=== PATIENT | female | born 1930 | race Caucasian/White ===

== ENCOUNTER 2016-08-13 17:08 | Emergency (ER) | payer MEDICARE ==
--- NOTE | 2016-08-13 18:03 | RAD ---
INDICATION: Right ankle injury. TECHNIQUE: 3 views of the right ankle were obtained. FINDINGS: The bones are osteopenic. There is diffuse soft tissue swelling present. There is an oblique intra-articular fracture of the distal fibula. The distal fragment is displaced approximate 2 cortical diameters lateral and demonstrates lateral angulation relative the proximal fragment. In addition there is a transverse comminuted fracture of the medial malleolus extending to the articular margin. The distal fragment is slightly displaced lateral relative to the proximal fragment. There is widening of the ankle mortise. IMPRESSION: 1. OBLIQUE SLIGHTLY DISPLACED, ANGULATED INTRA-ARTICULAR FRACTURE OF THE DISTAL FIBULA. 2. TRANSVERSE SLIGHTLY COMMINUTED SLIGHTLY DISPLACED INTRA-ARTICULAR FRACTURE OF THE MEDIAL MALLEOLUS. 3. WIDENING OF THE ANKLE MORTISE.
--- NOTE | 2016-08-13 18:13 | ED ---
Lower Extremity - HPI Summary HPI Summary: 86 female presents with complaints of right ankle pain and swelling after falling on ice few hours prior to arrival. Patient is accompanied by 2 sons and was brought in via EMS. Patient states she was walking when she slipped and thinks she felt cracking in her ankle. States her pain right now is about a 4/ 10. She has not taken anything for the pain. Denies tingling. Admits to some numbness, ecchymosis and swelling surrounding the ankle. Limited ROM and unable to bear weight. She has osteoporosis. Did not hit her head and no LOC. Denies any other aches/pains or injuries at this time. - History of Current Complaint Chief Complaint: EDExtremityLower Stated Complaint: RT ANKLE INJURY Time Seen by Provider: 08/13/16 17:21 Hx Obtained From: Patient, Family/Confectionery Cooker - sons Mechanism Of Injury: Fall From A Standing Position, Twisted Onset of Pain: Immediate Onset/Duration: Still Present Severity Initially: Mild Severity Currently: Moderate Pain Intensity: 4 Pain Scale Used: 0-10 Numeric Timing: Constant Location: Is Discrete @ - right ankle Character Of Pain: Aching, Throbbing Associated Signs And Symptoms: Positive: Swelling, Bruising. Negative: Knee Pain Aggravating Factor(s): Movement, Weight Bearing Alleviating Factor(s): Rest, Elevation Able to Bear Weight: No - Allergies/Home Medications Allergies/Adverse Reactions: Allergies Allergy/AdvReac Type Severity Reaction Status Date / Time No Known Allergies Allergy Verified 12/11/14 08:18 PMH/Surg Hx/FS Hx/Imm Hx Endocrine/Hematology History: Denies: Hx Diabetes, Hx Thyroid Disease Cardiovascular History: Reports: Hx Rheumatic Fever - HX OF 1966 Denies: Hx Hypertension Respiratory History: Denies: Hx Asthma, Hx Chronic Obstructive Pulmonary Disease (COPD) GI History: Denies: Hx Ulcer History: Reports: Other Problems/Disorders - HX OF UTI'S IN THE PAST Musculoskeletal History: Reports: Hx Arthritis - FINGERS, Hx Osteoporosis Sensory History: Reports: Hx Cataracts - BILATERAL, Hx Contacts or Glasses Denies: Hx Hearing Aid Opthamlomology History: Reports: Hx Cataracts - BILATERAL, Hx Contacts or Glasses - Surgical History Surgery Procedure, Year, and Place: abdominal adhesion 91 left distal radius ORIF today Hx Anesthesia Reactions: Yes - OVERNIGHT OBSERVATION/WRIST SURGERY/MAY HAVE HEART RELATED, UNK, NONE SINCE Infectious Disease History: No Infectious Disease History: Denies: Hx Hepatitis, Hx Human Immunodeficiency Virus (HIV), Traveled Outside the [place] in Last 30 Days - Family History Known Family History: Positive: None - Social History Alcohol Use: None Substance Use Type: Reports: None Smoking Status (MU): Never Smoked Tobacco Review of Systems Constitutional: Negative Cardiovascular: Negative Respiratory: Negative Gastrointestinal: Negative Positive: Arthralgia, Myalgia, Decreased ROM, Edema - right ankle Positive: Bruising - right ankle Neurological: Negative Psychological: Normal All Other Systems Reviewed And Are Negative: Yes Physical Exam Triage Information Reviewed: Yes Vital Signs On Initial Exam: Initial Vitals Temp Pulse Resp BP Pulse Ox 97.9 F 58 16 176/63 97 08/13/16 17:27 08/13/16 17:27 08/13/16 17:27 08/13/16 17:27 08/13/16 17:27 BP re-taken before d/c and was in normal range. Patient was experiencing pain due to fracture of tibia and fibula resulting in hypertension. Vital Signs Reviewed: Yes Appearance: Positive: Well-Appearing, No Pain Distress, Well-Nourished Skin: Positive: Warm, Skin Color Reflects Adequate Perfusion - <2 second cap refill, Dry Head/Face: Positive: Normal Head/Face Inspection Eyes: Positive: Normal, Conjunctiva Clear ENT: Positive: Normal ENT inspection, Hearing grossly normal Neck: Positive: Supple, Nontender, No Lymphadenopathy Respiratory/Lung Sounds: Positive: Clear to Auscultation, Breath Sounds Present Cardiovascular: Positive: Normal, RRR, Pulses are Symmetrical in both Upper and Lower Extremities - 2+ pedal pulses bilaterally Musculoskeletal: Positive: Limited @ - ROM with flexion extension internal and external rotation., Interruption @, Abnormal @ - right ankle obvious deformity, ecchymosis, edema, crepitus noted both lateral and medial malleolous., Pain @ - right ankle with palpation and movement, Other - tillman test normal, achilles tendon appears to be intact. skin and sensation intact. strength of toes and foot normal. Neurological: Positive: Normal, Sensory/Motor Intact, Alert, Oriented to Person Place, Time, CN Intact II-III, Reflexes Intact, NV Bundle Intact Distally, Unable to Assess Gait Psychiatric: Positive: Normal, Affect/Mood Appropriate Procedures - Splinting Location: right ankle Hand-Made Type: plaster Splint: posterior walking Pre-Proc Neuro Vasc Exam: normal Post-Proc Neuro Vasc Exam: normal, unchanged from pre-exam Diagnostics - Vital Signs Vital Signs Temp Pulse Resp BP Pulse Ox 08/13/16 17:27 97.9 F 58 16 176/63 97 - Laboratory Lab Statement: Any lab studies that have been ordered have been reviewed, and results considered in the medical decision making process. - Radiology right ankle Xray Interpretation: Positive (See Comments) - 1. OBLIQUE SLIGHTLY DISPLACED, ANGULATED INTRA-ARTICULAR FRACTURE OF THE DISTAL FIBULA. 2. TRANSVERSE SLIGHTLY COMMINUTED SLIGHTLY DISPLACED INTRA-ARTICULAR FRACTURE OF THE MEDIAL MALLEOLUS. 3. WIDENING OF THE ANKLE MORTISE. Radiology Interpretation Completed By: Radiologist Re-Evaluation - Re-Evaluation First Eval Re-Evaluation Time: 19:25 Change: Improved - feels some relief after ibuprofen administration Lower Extremity Course/Dx - Course Course Of Treatment: X-ray obtained and positive. Ortho Dr Gonzalez called to inform. posterior and stirrup splint applied. ice and ibuprofen for pain and inflammation. elevation. sent home with pain management and follow up with orthopedics for probable surgery. aware of worsening signs and symptoms. - Diagnoses Differential Diagnosis/HQI/PQRI: Positive: Contusion, Dislocation, Fracture ( Closed), Sprain, Strain Provider Diagnoses: Fracture of distal end of tibia, Fracture of distal fibula - Physician Notifications Discussed Care of Patient With: Dr Gonzalez Time Discussed With Above Provider: 19:20 Instructed by Provider To: Have Pt Call For Appt. - be seen in office tomorrow Discharge - Discharge Plan Condition: Stable Disposition: HOME Patient Education Materials: Ankle Fracture (ED) Referrals: [facility] [place] PHYSICIAN REFERRAL [Outside] Rick Gonzalez MD [Medical Doctor] - Additional Instructions: Take Advil (800mg) or Tylenol for pain and inflammation over the next 5-7 days as needed for pain. Use ice as needed. Do no bear weight on your right ankle, use crutches. Elevate your leg and rest throughout the day. Follow up with orthopedist beginning of next week for further evaluation. It is very important to make sure your splint does not become too tight. If it feels tight, extremely painful, you feel numbness/tingling or it appears red or swollen please seek medical attention promptly to have the splint removed and to prevent compartment syndrome.
[2016-08-13] MEDS ORDERED: Ibuprofen TAB* 400 MG PO ONE (18:34)
[2016-08-13 21:41] VITALS: BP 176/60
== END 2016-08-13 20:15 | disposition home or self-care (01) ==
LOC: ED 17:08
DX: S82.301A Unspecified fracture of lower end of right tibia, initial encounter for closed fracture (principal); S82.831A Other fracture of upper and lower end of right fibula, initial encounter for closed fracture; M25.571 Pain in right ankle and joints of right foot; W00.9XXA Unspecified fall due to ice and snow, initial encounter; Y93.9 Activity, unspecified; Y92.9 Unspecified place or not applicable; Y99.9 Unspecified external cause status
CPT/HCPCS: 99282; A9270-GY

== ENCOUNTER 2016-08-23 13:18 | Observation (INO) | payer MEDICARE, OTHER ==
[~2016-08-23 13:18] MED LIST: Buffered Lidocaine 1% SYRIN* 3 ML/SYR SYRINGE INTRADERM ONE; Bupivacaine 0.5% SDV PF* 30 ML VIAL ONE; Midazolam* 1 MG/ML 2 ML VIAL (2 MG) ONE; fentaNYL* 50 MCG/ML 2 ML VIAL (100 MCG VIAL) ONE
[2016-08-23] MEDS ORDERED: ceFAZolin 2 GM PREMIX(*) 2 GM/50 ML BAG IVPB ONE (13:33)
[2016-08-23] MEDS ORDERED: Ondansetron INJ* 2 MG/ML VIAL ONE (14:44)
[2016-08-23] MEDS ORDERED: Dexamethasone IV* 4 MG/ML 1 ML (4 MG) ONE (14:44)
[2016-08-23] MEDS ORDERED: fentaNYL* 50 MCG/ML 2 ML VIAL (100 MCG VIAL) ONE ×2 (14:44→16:01)
[2016-08-23] MEDS ORDERED: Lidocaine 2% PF* 5 ML VIAL ONE (14:44)
[2016-08-23] MEDS ORDERED: Propofol* 10 MG/ML 20 ML BTL IV PUSH ONE (14:44)
[2016-08-23] MEDS ORDERED: Acetaminophen TAB* 325 MG PO PRN ×2 (14:48→18:10)
[2016-08-23] MEDS ORDERED: Ketorolac INJ* 30 MG/ML 1 ML VIAL IV PRN (14:48)
[2016-08-23] MEDS ORDERED: hydrALAZINE IV* 20 MG/ML VIAL ONE (15:38)
[2016-08-23] MEDS ORDERED: Ketorolac INJ* 30 MG/ML 1 ML VIAL ONE (15:46)
[2016-08-23] MEDS ORDERED: oxyCODONE TAB* 5 MG TAB ONE (16:01)
[2016-08-23] MEDS: fentaNYL* 50 MCG/ML 2 ML VIAL (100 MCG VIAL) IV PRN ×4 (16:06→16:46)
[2016-08-23] MEDS ORDERED: HYDROmorphone* 1 MG/ML 1 ML SYR ONE (16:19)
[2016-08-23] MEDS: HYDROmorphone* 1 MG/ML 1 ML SYR IV PRN ×3 (16:20→16:47)
[2016-08-23] MEDS ORDERED: oxyCODONE/Acetamin 5/325 MG* TAB PO PRN (18:10)
[2016-08-23] MEDS ORDERED: Ondansetron INJ* 2 MG/ML VIAL IV PRN (18:10)
[2016-08-23] MEDS ORDERED: Morphine INJ* 2 MG/ML 1 ML SYRINGE IV PRN (18:10)
[2016-08-23] MEDS ORDERED: diPHENhydraMINE IV* 50 MG/ML 1 ml VIAL (BENADRYL) IV PRN (18:10)
[2016-08-23] MEDS ORDERED: Temazepam CAP* 15 MG PO PRN (18:10)
--- NOTE | 2016-08-23 20:01 | RAD ---
INDICATION: Right ankle ORIF, displaced bimalleolar fracture of the right lower leg. No other history is provided. COMPARISONS: None relevant TECHNIQUE: Fluoroscopy was provided for a surgical procedure. Total fluoroscopy time is: 5 seconds FINDINGS: Spot images demonstrate internal fixation of the distal tibia and fibula IMPRESSION: FLUOROSCOPY WAS PROVIDED FOR A SURGICAL PROCEDURE CPT II Codes: 6045F
[2016-08-23] MEDS ORDERED: Atorvastatin* 20 MG TAB PO SCH (21:00)
[2016-08-23] MEDS: ceFAZolin 1 GM in Dextrose (*) 1 GM/50 ML BAG IVPB SCH (21:31)
[2016-08-23] MEDS: Docusate CAP* 100 MG PO SCH (21:33)
[2016-08-23] MEDS: oxyCODONE/Acetamin 5/325 MG* TAB PO PRN (23:20)
[2016-08-24] MEDS: oxyCODONE/Acetamin 5/325 MG* TAB PO PRN ×2 (05:42→09:56)
[2016-08-24] MEDS: ceFAZolin 1 GM in Dextrose (*) 1 GM/50 ML BAG IVPB SCH (05:43)
[2016-08-24 07:38] VITALS: BP 143/54
[2016-08-24] MEDS ORDERED: Cyanocobalamin TAB* 500 MCG PO SCH (09:00)
[2016-08-24] MEDS ORDERED: Cholecalciferol TAB* 1000 UNITS PO SCH (09:00)
[2016-08-24] MEDS: Docusate CAP* 100 MG PO SCH (09:00)
[2016-08-24] MEDS ORDERED: OMEGA-3 FATTY ACIDS (NF) 1,000 MG CAP PO SCH (09:00)
[2016-08-24] MEDS ORDERED: Aspirin TAB* 325 MG PO SCH (09:00)
--- NOTE | 2016-08-24 10:15 | OP ---
OPERATIVE REPORT: DATE OF OPERATION: 08/23/16 DATE OF : 30 SURGEON: Rick Gonzalez MD [employer]: Antoinette Garibay PA-C PRE-OP DIAGNOSIS: Right bimalleolar ankle fracture. POST-OP DIAGNOSIS: Right bimalleolar ankle fracture with osteopenia. OPERATIVE PROCEDURE: Bimalleolar ankle fracture fixation. PROCEDURE: The patient was taken to the operating room where a longitudinal incision was made over the distal fibula. There was a short oblique fracture, but fairly comminuted. In trying to lengthe n this fracture with clamps, there was essentially mushy bone encountered. To address this, I fashi oned a 8-holed one- third tubular plate to fit the posterolateral aspect of the fibula. Proximally, this was fixed with cortical screws. One of the cortical screws just above the fracture was into the tibia. I then manipulated the fibula distally and then passed the 4 cortical screws throug h the plate into the tibia, giving good fixation. So, essentially a lateral plate construct. I opened up the medial malleolus and found a similar situation with the medial malleolus being commi nuted and very soft. Rather than fix this with screws, a spring plate was fashioned on the medial a spect of the distal tibia, underbent to hold firmly the medial malleolus in its normal position, and fixed with cortical screws above the level of the fracture. X-ray intraoperatively showed satisfac tory position of both fracture fragments and the ankle mortise. We then irrigated the medial and la teral wounds, closing with Vicryl and nylon medially, matt laterally, compression dressing and pl peter splint applied. [id number]/[facility] #: [id number]
--- NOTE | 2016-08-24 10:18 | PN ---
Progress Note - Progress Note SOAP: Subjective: []Patient seen OOB in chair. Ankle elevated. Doing well, pain well managed. Ready to go home today. Objective: [] Vital Signs Temp 97.9 F 08/24/16 07:28 Pulse 55 08/24/16 07:28 Resp 16 08/24/16 09:56 BP 143/54 08/24/16 07:28 Pulse Ox 99 08/24/16 08:05 Intake & Output 08/23/16 08/24/16 08/24/16 18:59 06:59 18:59 Intake Total 900 2170 Output Total 200 Balance 900 1970 Weight 135 lb Intake: IV Fluids 900 760 lr 900 IVPB 250 ABX - CEFAZOLIN 50 Oral 1160 Output: Urine 200 Other: Estimated Void Medium Medium Right ankle splint is dry and intact moving her toes well sensation toes intact, pink and warm Assessment: []s/p ORIF right bi malleolar ankle fracture POD#1 Plan: []PT/OT NWB right LE Discharge home today f/u with Dr. Gonzalez 09/03/16 as scheduled
--- NOTE | 2016-08-24 22:05 | DS ---
DISCHARGE SUMMARY: DATE OF ADMISSION: 08/23/16 DATE OF DISCHARGE: 08/24/16 ATTENDING PHYSICIAN: Dr. Rick Gonzalez. ADMISSION DIAGNOSIS: Bimalleolar displaced right ankle fracture. DISCHARGE DIAGNOSIS: Bimalleolar displaced right ankle fracture. SURGERY PERFORMED: Open reduction and internal fixation, right bimalleolar ankle fracture. HOSPITAL COURSE: The patient is an 86-year-old spry female who was clearing some ice on 08/13/16 when she fell sustaining a bimalleolar ankle fracture. Initially she was splinted, but the fracture moved into an inacceptable position and was felt she would benefit from open reduction and internal fixation. She elected to proceed with surgical intervention and was taken to the operating room under the care of Dr. Rick Gonzalez on the date of 08/23/16 for the aforementioned procedure. She tolerated the procedure well and left the operating room in stable condition. Postoperatively, she was admitted under observation status to make sure that she could transfer and ambulate nonweightbearing on the right lower extremity. She mastered her PT/OT goals without difficulty and it was felt she was stable for discharge to home on the date of 08/24/16. CONDITION ON DISCHARGE: Per review of her chart. She is afebrile, her vital signs are stable. Her right ankle splint is clean, dry, and intact. Her neurovascular status is intact in the right lower extremity. She is moving her toes well and has full sensation. PLAN: Discharge to home. Remain nonweightbearing on the right lower extremity. She will take aspirin 325 mg p.o. daily and Percocet 5/325 mg #90, no refills, was sent to [facility] pharmacy, [facility] in [place]. She will follow up with Dr. Gonzalez next 09/03/16 in the office. MASOOD DIALLO [id number]/[facility] #: [id number] MTDD
== END 2016-08-24 11:30 | disposition home or self-care (01) ==
LOC: OR 13:18 → SSU 18:10
PROVIDERS: ADMIT Orthopaedic Surgery; ATTEND Orthopaedic Surgery
PROC: 0QSJ04Z Reposition Right Fibula with Internal Fixation Device, Open Approach (ICD-10-PCS; principal; 2016-08-23 14:45)
DX: S82.841A Displaced bimalleolar fracture of right lower leg, initial encounter for closed fracture (principal); W00.0XXA Fall on same level due to ice and snow, initial encounter; Y93.89 Activity, other specified; Y92.9 Unspecified place or not applicable; E78.5 Hyperlipidemia, unspecified; Z86.73 Personal history of transient ischemic attack (TIA), and cerebral infarction without residual deficits
CPT/HCPCS: 76000; 96361; 96374; A9270-GY; C1713; C1776; G0378; G8978-GP-CJ; G8979-GP-CI; G8980-GP-CJ; G8987-GO-CI; G8988-GO-CI; J0360; J0690; J1100; J1170; J1885; J2250; J2270; J2405; J2704; J3010

== ENCOUNTER 2018-05-03 20:57 | Emergency (ER) | payer MEDICARE, OTHER ==
[2018-05-03 21:13] VITALS: BP 179/88
--- NOTE | 2018-05-03 21:56 | UC ---
Abdominal Pain Female HPI - HPI Summary HPI Summary: WAS WOKEN FROM SLEEP BY DIFFUSE ABDOMINAL PAIN THIS MORNING. THOUGHT SHE MAYBE ATE SOMETHING QUESTIONABLE LAST NIGHT SO TRIED TO WAIT IT OUT. APPETITE HAS BEEN DECREASED ALL DAY. WAS CONCERNED SHE MIGHT BE GETTING DEHYDRATED SHE WASN'T EATING OR DRINKING ANYTHING SO SHE DRANK ABOUT A LITER OF WATER WHICH SHE PROMPTLY THREW UP. THOUGHT SHE WAS FEELING BETTER BUT THEN THE PAIN RETURNED. SHE HAD A BOWEL MOVEMENT TODAY AND IS PASSING SOME GAS. NO FEVER. NO URINARY SYMPTOMS. OF NOTE PATIENT HAD 2 SMALL BOWEL OBSTRUCTIONS ABOUT 25 YEARS AGO REQUIRING SURGERY. - History of Current Complaint Chief Complaint: UCGI Stated Complaint: ABD PAIN Time Seen by Provider: 05/03/18 21:23 Hx Obtained From: Patient Onset/Duration: Sudden Onset, Lasting Hours, Still Present Severity Initially: Moderate Severity Currently: Moderate Pain Intensity: 4 Pain Scale Used: 0-10 Numeric Location: Diffuse Radiates: No Character: Aching Aggravating Factor(s): Nothing Alleviating Factor(s): Nothing Associated Signs and Symptoms: Positive: Decreased Appetite. Negative: Diaphoresis, Fever, Chest Pain, Back Pain, Constipation, Urinary Symptoms, Nausea, Diarrhea Allergies/Adverse Reactions: Allergies Allergy/AdvReac Type Severity Reaction Status Date / Time No Known Allergies Allergy Verified 05/03/18 21:14 Home Medications: Home Medications Aspirin TAB* [Aspirin 325 MG TAB*] 81 mg PO DAILY 05/03/18 [History Confirmed ] PMH/Surg Hx/FS Hx/Imm Hx Other GI/ History: H/O SBO - Surgical History Surgical History: Yes Surgery Procedure, Year, and Place: Right ankle repair 07/2016. abdominal adhesion 1988.91 left distal radius ORIF , 2012. [place]isa cataracts , 11[place] [facility] [place], [facility] [place]. append[place], 1940 - Family History Known Family History: Positive: None - Social History Alcohol Use: None Substance Use Type: None Smoking Status (MU): Never Smoked Tobacco Review of Systems All Other Systems Reviewed And Are Negative: Yes Constitutional: Positive: Negative Respiratory: Positive: Negative Cardiovascular: Positive: Negative Gastrointestinal: Positive: Abdominal Pain, Vomiting Genitourinary: Positive: Negative Physical Exam Triage Information Reviewed: Yes Appearance: Well-Appearing, Well-Nourished, Pain Distress - MILD Vital Signs: Initial Vital Signs Temp 98.5 F 05/03/18 21:03 Pulse 72 05/03/18 21:03 Resp 16 05/03/18 21:03 BP 179/88 05/03/18 21:03 Pulse Ox 99 05/03/18 21:03 Vital Signs Reviewed: Yes Eyes: Positive: Conjunctiva Clear ENT: Positive: Hearing grossly normal Neck: Positive: Supple Respiratory Exam: Normal Cardiovascular: Positive: RRR - OCCASIONAL SKIPPED BEATS AND ECTOPIC BEATS Abdomen Description: Positive: Soft, Distended, Other: - TENDER DIFFUSELY BUT WORSE LEFT SIDED. NO REBOUND. NOT RIGID. Negative: CVA Tenderness (R), CVA Tenderness (L) Bowel Sounds: Positive: Present Musculoskeletal: Positive: No Edema Neurological: Positive: Alert Psychological: Positive: Age Appropriate Behavior Skin: Negative: Rashes Abd Pain Female Course/Dx - Course Course Of Treatment: PT WITH H/O SBO X 2 ABOUT 25 YEARS AGO. HAS ABDOMINAL DISTENTION AND LEFT SIDED TENDERNESS ON EXAM. BP ELEVATED. PT REQUIRES FURTHER EVALUATION IN ED SETTING. PT OFFERED TRANSPORT TO THE ED BY AMBULANCE BUT DECLINES. ADVISED THAT BY NOT TRAVELING IN A MONITORED SETTING SHE COULD BE RISKING WORSENING OF HER CONDITION THAT COULD POSE A THREAT TO HER LIFE, HEALTH AND MEDICAL SAFETY. SHE VERBALIZES UNDERSTANDING AND CONTINUES TO DECLINE AMBULANCE TRANSFER. - Differential Dx/Diagnosis Provider Diagnosis: Abdominal pain - Physician Notification/Consults Discussed Care of Patient With: Milton Wilcox - TO [facility] ED BY PRIVATE CAR Time Discussed With Above Provider: 21:55 Instructed by Provider To: MD Will See In ED Discharge - Sign-Out/Discharge Documenting (check all that apply): Patient Departure All imaging exams completed and their final reports reviewed: No Studies - Discharge Plan Condition: Stable Disposition: TRANS HIGHER LVL OF CARE FAC Patient Education Materials: Abdominal Pain (ED) Referrals: No Primary Care Phys,NOPCP [Primary Care Provider] - Additional Instructions: GO DIRECTLY TO THE [facility] ED FROM HERE FOR FURTHER EVALUATION. YOU HAVE DECLINED TRANSFER TO THE ED BY AMBULANCE. BE ADVISED THAT BY NOT TRAVELING IN A MONITORED SETTING YOU COULD BE RISKING WORSENING OF YOUR CONDITION THAT COULD POSE A THREAT TO YOUR LIFE, HEALTH AND MEDICAL SAFETY. - Billing Disposition and Condition Condition: STABLE Disposition: Trans Higher Lvl of Care Fac
== END 2018-05-03 21:52 | disposition short-term general hospital (02) ==
LOC: UCEAST 20:57
DX: R10.84 Generalized abdominal pain (principal); R11.10 Vomiting, unspecified
CPT/HCPCS: 99212; G0463

== ENCOUNTER 2018-05-03 22:20 | Inpatient (IN) | payer MEDICARE, OTHER ==
--- NOTE | 2018-05-03 22:52 | ED ---
Abdominal Pain/Female - HPI Summary HPI Summary: This patient is an 87 year old F presenting to [facility] with a chief complaint of intermittent diffuse abd pain that began at 0400 today. The patient rates the pain 4/10 in severity. Symptoms aggravated by nothing. Symptoms alleviated by nothing. Patient reports vomiting. Patient states her last bowel movement was at 1800 today. Patient states symptoms feel similar to previous bowel obstructions. - History of Current Complaint Chief Complaint: EDAbdPain Stated Complaint: ABD PAIN Time Seen by Provider: 05/03/18 22:40 Hx Obtained From: Patient ?: No Onset/Duration: Sudden Onset, Lasting Hours, Still Present Timing: Intermittent Episode Lasting Severity Initially: Moderate Severity Currently: Moderate Pain Intensity: 4 Pain Scale Used: 0-10 Numeric Location: Diffuse Radiates: No Aggravating Factor(s): Nothing Alleviating Factor(s): Nothing Associated Signs and Symptoms: Positive: Vomiting Allergies/Adverse Reactions: Allergies Allergy/AdvReac Type Severity Reaction Status Date / Time No Known Allergies Allergy Verified 05/03/18 22:27 PMH/Surg Hx/FS Hx/Imm Hx Previously Healthy: No Endocrine/Hematology History: Denies: Hx Diabetes, Hx Thyroid Disease Cardiovascular History: Reports: Hx Rheumatic Fever - HX OF 1966 Denies: Hx Hypertension Respiratory History: Denies: Hx Asthma, Hx Chronic Obstructive Pulmonary Disease (COPD) GI History: Denies: Hx Ulcer History: Reports: Other Problems/Disorders - HX OF UTI'S IN THE PAST Musculoskeletal History: Reports: Hx Arthritis - FINGERS, Hx Osteoporosis, Other Musculoskeletal History - osteoporosis Sensory History: Reports: Hx Cataracts - BILATERAL, Hx Contacts or Glasses - glasses Denies: Hx Hearing Aid Opthamlomology History: Reports: Hx Cataracts - BILATERAL, Hx Contacts or Glasses - glasses - Surgical History Surgery Procedure, Year, and Place: Right ankle repair 07/2016. abdominal adhesion 1988.91 left distal radius ORIF , 2012. [place] [facility] [place] [facility] [place] Hx Anesthesia Reactions: Yes - OVERNIGHT OBSERVATION/WRIST SURGERY/MAY HAVE HEART RELATED, UNK, NONE SINCE Infectious Disease History: No Infectious Disease History: Denies: Hx Hepatitis, Hx Human Immunodeficiency Virus (HIV), Traveled Outside the [place] in Last 30 Days - Family History Known Family History: Positive: Other - Negative anesthesia reaction - Social History Occupation: Retired Lives: Alone Alcohol Use: None Hx Substance Use: No Substance Use Type: Reports: None Hx Tobacco Use: No Smoking Status (MU): Never Smoked Tobacco Review of Systems Negative: Fever Positive: Abdominal Pain, Vomiting All Other Systems Reviewed And Are Negative: Yes Physical Exam - Summary Physical Exam Summary: VITAL SIGNS: Reviewed. GENERAL: Patient is a well-developed and nourished female who is lying comfortable in the stretcher. Patient is not in any acute respiratory distress. HEAD AND FACE: No signs of trauma. No ecchymosis, hematomas or skull depressions. No sinus tenderness. EYES: PERRLA, EOMI x 2, No injected conjunctiva, no nystagmus. EARS: Hearing grossly intact. Ear canals and tympanic membranes are within normal limits. MOUTH: Oropharynx within normal limits. NECK: Supple, trachea is midline, no adenopathy, no JVD, no carotid bruit, no c- spine tenderness, neck with full ROM. CHEST: Symmetric, no tenderness at palpation LUNGS: Clear to auscultation bilaterally. No wheezing or crackles. CVS: Regular rate and rhythm, S1 and S2 present, no murmurs or gallops appreciated. ABDOMEN: Soft, non-tender. Distended. No rebound no guarding, and no masses palpated. Hypoactive bowel sounds. EXTREMITIES: FROM in all major joints, no edema, no cyanosis or clubbing. NEURO: Alert and oriented x 3. No acute neurological deficits. Speech is normal and follows commands. SKIN: Dry and warm Triage Information Reviewed: Yes Vital Signs On Initial Exam: Initial Vitals Temp Pulse Resp BP Pulse Ox 97.9 F 74 16 171/91 100 05/03/18 22:22 05/03/18 22:22 05/03/18 22:22 05/03/18 22:22 05/03/18 22:22 Vital Signs Reviewed: Yes Diagnostics - Vital Signs Vital Signs Temp Pulse Resp BP Pulse Ox 05/03/18 22:22 97.9 F 74 16 171/91 100 - Laboratory Result Diagrams: 05/03/18 23:11 05/03/18 23:11 Lab Statement: Any lab studies that have been ordered have been reviewed, and results considered in the medical decision making process. - CT CT Abdomen and Pelvis CT Interpretation Completed By: Radiologist Summary of CT Findings: CT abdomen and pelvis reveals, per radiologist, 1. High- grade small bowel obstruction with transition point in the ileum. 2. Colonic diverticulosis with no evidence of acute diverticulitis. 3. A hiatal hernia with reflux. ED physician has reviewed this radiology report. Abdominal Pain Fem Course/Dx - Course Course Of Treatment: This patient is an 87 year old F presenting to [facility] with a chief complaint of intermittent diffuse abd pain that began at 0400 today. Patient states symptoms feel similar to previous bowel obstructions. Physical Exam Findings: Distended with hypoactive bowel sounds. CT abdomen and pelvis reveals, per radiologist, 1. High-grade small bowel obstruction with transition point in the ileum. 2. Colonic diverticulosis with no evidence of acute diverticulitis. 3. A hiatal hernia with reflux. Bloodwork obtained. In the ED course the patient was given contrast and fluids. Consult with Dr. Mitchell ( hospitalist) at 0137. She requests that we call the surgeon. Consult with Dr. Arana (surgery) at 0143. She communicated that we should admit to the hospitalist. Consult with Dr. Mitchell (hospitalist) at 0149. She agrees to admit the patient for further evaluation. The patient is agreeable with this plan. - Diagnoses Provider Diagnoses: Small bowel obstruction - Provider Notifications Discussed Care Of Patient With: Charity Mitchell Time Discussed With Above Provider: 01:37 Instructed by Provider To: Other - Consult with Dr. Mitchell (hospitalist) at 0137. She requests that we call the surgeon. Consult with Dr. Arana (surgery) at 0143. She communicated that we should admit to the hospitalist. Consult with Dr. Mitchell (hospitalist) at 0149. She agrees to admit the patient for further evaluation. Discharge - Sign-Out/Discharge Documenting (check all that apply): Patient Departure - [place] [facility] [place] Plan Condition: Stable Disposition: ADMITTED TO [facility] Referrals: No Primary Care Phys,NOPCP [Primary Care Provider] - - Attestation Statements Document Initiated by Scribe: Yes Documenting Scribe: Ximena Schmitz Provider For Whom Maryibe is Documenting (Include Credential): Dr. Ely Ayala MD Scribe Attestation: Ximena Ledbetter, sonalied for Dr. Ely Ayala MD on 05/04/18 at 0156. Status of Scribe Document: Ready
[2018-05-03] MEDS ORDERED: NS 0.9% 1000 ML* 1,000 ML IV SCH (23:00)
[2018-05-03 23:26] LABS: INR 1.02 (0.77-1.02)
[2018-05-03 23:41] LABS: ABS Basophils 0 10^3/ul (0-0.2); ABS Eosinophils 0 10^3/ul (0-0.6); ABS Lymphocytes 1.2 10^3/ul (1.0-4.8); ABS Monocytes 0.4 10^3/ul (0-0.8); ABS Neutrophils 8.8 10^3/ul (1.5-7.7); ABS Nucleated RBC 0 10^3/ul; Eosinophil % 0 %; Hematocrit 43 % (35-47); Hemoglobin 14.4 g/dl (12.0-16.0); Lymphocyte % 11.3 %; Mean Corpuscular HGB Conc 33 g/dl (31-36); Mean Corpuscular Hemoglobin 29 pg (27-31); Mean Corpuscular Volume 88 fL (80-97); Mean Platelet Volume 7.8 fL (7.4-10.4); Nucleated Red Blood Cells % 0; Platelet Count 279 10^3/ul (150-450); Red Blood Count 4.93 10^6/ul (4.00-5.40); Red Cell Distribution Width 14 % (10.5-15); White Blood Count 10.4 10^3/ul (3.5-10.8)
[2018-05-03 23:43] LABS: EGFR Non-African American 109.1 (>60)
[2018-05-04] MEDS ORDERED: Iohexol 300* (CONTRAST) 10 ML SDV IV ONE (00:42)
[2018-05-04] MEDS ORDERED: Morphine VIAL* 4 MG/ML VIAL (1 ml vial) IV PRN (02:15)
[2018-05-04] MEDS ORDERED: Ondansetron INJ* 2 MG/ML VIAL IV PRN (02:15)
[2018-05-04] MEDS: NS 0.9% 1000 ML* 1,000 ML IV SCH ×3 (04:32→21:33)
[2018-05-04] MEDS: Heparin VIAL(*) 5000 UNITS/ML VIAL (FIVE THOUSAND) SUBCUT SCH ×3 (05:06→21:30)
[2018-05-04 05:36] LABS: ABS Basophils 0.1 10^3/ul (0-0.2); ABS Eosinophils 0 10^3/ul (0-0.6); ABS Lymphocytes 1.1 10^3/ul (1.0-4.8); ABS Monocytes 0.6 10^3/ul (0-0.8); ABS Neutrophils 8.9 10^3/ul (1.5-7.7); ABS Nucleated RBC 0 10^3/ul; Eosinophil % 0.1 %; Hematocrit 40 % (35-47); Hemoglobin 13.4 g/dl (12.0-16.0); Lymphocyte % 10.5 %; Mean Corpuscular HGB Conc 34 g/dl (31-36); Mean Corpuscular Hemoglobin 29 pg (27-31); Mean Corpuscular Volume 87 fL (80-97); Mean Platelet Volume 7.8 fL (7.4-10.4); Nucleated Red Blood Cells % 0; Platelet Count 260 10^3/ul (150-450); Red Blood Count 4.59 10^6/ul (4.00-5.40); Red Cell Distribution Width 14 % (10.5-15); White Blood Count 10.8 10^3/ul (3.5-10.8)
[2018-05-04 05:45] LABS: EGFR Non-African American 128.5 (>60)
--- NOTE | 2018-05-04 06:54 | HP ---
CC: Yareli Wu MD * HISTORY AND PHYSICAL: DATE OF ADMISSION: 05/04/18 TIME OF EVALUATION: 0200 PRIMARY CARE PHYSICIAN: Yareli Wu MD CHIEF COMPLAINT: Abdominal pain. HISTORY OF PRESENT ILLNESS: This is n 87-year-old female with a remote past medical history of small bowel obstruction. He presents to the emergency room with almost 24 hours of worsening abdominal pain. She states yesterday, on 10/14, around 4 a.m., she woke up with abdominal pain. She thought it was related to gas. She drank some water with soda. She proceeded to vomit that up. She tried to go about her day, but was limited due to the pain. It eventually got worse, she went to urgent care and I recommended she come to the emergency room for further evaluation. She has been trying to keep down liquids , but has had nausea and vomiting throughout the day. No nausea currently. She is having worsening abdominal discomfort mostly on the left lower quadrant region. Her last bowel movement was at 6 p.m. last evening. She states prior to that she was having small stools throughout the morning, which was unusual for her. She denies any fevers, no chest pain, no shortness of breath. She does have some urinary irritation and she recalls that she has a history of urinary tract infection. She did give her first urine sample that was not a clean catch. We discussed repeating this with a clean catch. In the emergency room, the patient had labs, imaging and was referred to the hospitalist service for further evaluation. After Surgery was contacted, they recommended hospitalist admission. PAST MEDICAL HISTORY: 1. Arthritis. 2. Osteoporosis. 3. History of cataracts. 4. Hyperlipidemia. 5. History of an appendectomy at young age. 6. History of a small bowel obstruction in 1988, requiring surgery and then in 1990, also requiring surgery. 7. History of tubal ligation. MEDICATIONS: 1. Atorvastatin daily. 2. Supplements including vitamin D, vitamin B12, omega-3 fatty acids. 3. Baby aspirin 81 mg p.o. daily. ALLERGIES: No known drug allergies. FAMILY HISTORY: Reviewed, noncontributory. SOCIAL HISTORY: The patient lives alone. She is independent with her ADLs. Her sons are local, Joaquin and Isra, who are her healthcare proxies. No history of tobacco or illicit drug use. She states she would like to be a DNR/ DNI. Her MOLST form will be completed. REVIEW OF SYSTEMS: A 14-point review of systems as mentioned in the HPI, otherwise negative. PHYSICAL EXAMINATION GENERAL: No acute distress, resting comfortably. VITAL SIGNS: Temp 97.9, pulse rate 52, respiratory rate 16, oxygen saturation 95 % on room air, blood pressure 158/83. HEENT: Head normocephalic. Pupils are equal and reactive, anicteric. Oropharynx: Mucous membranes are dry. NECK: Supple. No lymphadenopathy. RESPIRATORY: Diminished breath sounds. No wheezes, rhonchi, or rales. CARDIAC: Regular rate and rhythm. Systolic murmur heard most prominent at the left sternal base. ABDOMEN: Absent bowel sounds. Distended, soft, tenderness mostly in the left side of her abdomen. No rebound or guarding. EXTREMITIES: No clubbing, cyanosis, or edema. +1 DPs. NEUROLOGIC: Alert and oriented x3. No gross focal neurologic deficits. DIAGNOSTIC STUDIES/LAB DATA: White count 10.4, hemoglobin 14.4, hematocrit 43 , platelets 279. INR is 1.02. Sodium 135, potassium 3.8, chloride 102, bicarb 25, BUN 16, creatinine 0.53, glucose 107. Lactate 0.9. Radiographic data: High grade small bowel obstruction with transition point in the ileum, colonic diverticulosis, no evidence of acute diverticulitis. A hiatal hernia with reflux. ASSESSMENT AND PLAN: This is an 87-year-old female with past medical history of small bowel obstruction who presents to the emergency room with abdominal pain, nausea, vomiting and found to have a small bowel obstruction. 1. Small bowel obstruction. Assessment: Dr. Arana was contacted and will see the patient in the morning, recommended hospitalist admission. The patient with no nausea or vomiting at this time. So, we discussed holding off and putting in an NG tube. She is asking for some pain medication. The plan will be to n.p.o. except for ice chips, IV fluids. We will start with 1 mg of morphine and make sure she tolerates this with her age and increase as tolerated. Follow up with Surgery in the morning. 2. Chronic medical problems. The patient with limited chronic medical problems. We will hold her Lipitor and her aspirin and her supplements. 3. FEN: As mentioned, n.p.o. with IV fluids. 4. DVT prophylaxis: The patient scores high risk. We will place her on heparin subcu t.i.d. 5. Code status: DNR/DNI. She will fill out the MOLST form completed. PATIENT TIME: Greater than 40 minutes spent doing the history and physical, more than half the time spent in direct patient contact. [id number]/[facility] #: [id number] SEKOU
--- NOTE | 2018-05-04 10:00 | HP ---
HISTORY AND PHYSICAL/CONSULTATION NOTE: DATE OF ADMISSION: 05/04/18 SERVICE: General Surgery. ATTENDING PHYSICIAN: Ibis Arana MD REASON FOR CONSULTATION: Small bowel obstruction. HISTORY OF PRESENT ILLNESS: Ms. Henriquez is a very pleasant 87-year-old female who presented to the emergency room overnight with complaints of less than 1 day of sudden onset diffuse abdominal pain. The patient notes that this is very similar pain to when she had bowel obstructions in the past. She states that throughout the day she had hoped that the pain would improve as she thought it was related to something that she ate for dinner the night before; however, the pain continued to increase throughout the day and for this reason, she came to urgent care in [place]. She did not have any significant nausea or vomiting and she said that her last flatus was early in the morning yesterday and that she had a last formed bowel movement at 6 p.m. the evening that she came into the emergency room. She said that this helped to relieve some of her discomfort. Of note, the patient has had 2 bowel obstructions in the past, one in 1988 and one in 1990. Her prior surgical history included an appendectomy and tubal ligation. She says that both episodes of bowel obstructions required laparotomy and this was done here at [facility]. Currently, the patient is resting comfortably in bed. She reports that her pain is much improved. PAST MEDICAL HISTORY: Osteoporosis. PAST SURGICAL HISTORY: Appendectomy, tubal ligation, exploratory laparotomy in 1988 and 1990, wrist surgeries. MEDICATIONS: Vitamins. ALLERGIES: No known drug allergies. FAMILY HISTORY: Noncontributory. SOCIAL HISTORY: The patient is retired, lives alone in [place]. Her two sons live nearby. She is a nonsmoker. REVIEW OF SYSTEMS: Positive for abdominal pain. All other systems are negative. PHYSICAL EXAMINATION GENERAL: This is an elderly-appearing female, lying comfortably in bed, in no apparent distress. VITAL SIGNS: Temperature is 98.3, pulse is 63, respiratory rate is 18, O2 sats 96% O2 on room air, blood pressure is 156/62. HEENT: Normocephalic, atraumatic. NG tube is in place. RESPIRATORY: There is no increased work of breathing. ABDOMEN: Very soft, mildly distended. Tender in the left lower quadrant. No rebound. EXTREMITIES: No edema. LABORATORY VALUES: White blood cell count is 10.8, hemoglobin is 13.4, hematocrit is 40, platelets are 260,000. Sodium is 134, potassium is 3.7, chloride is 105, CO2 is 23, BUN is 15, creatinine is 0.46, glucose is 93, calcium is 9.6. RADIOLOGY: Abdominal CT scan from 05/03/18, images were reviewed. Impression was high-grade small bowel obstruction with transition point in the ileum, colonic diverticulosis with no evidence of acute diverticulitis and a hiatal hernia with reflux. Specifically, dilation of proximal mid small bowel loop measuring up to 4.1 cm associated with adjacent mesenteric fat stranding and small fluid caused a distal small bowel loop. ASSESSMENT AND PLAN: Ms. Henriquez is a very pleasant 87-year-old female who presented to the emergency room with less than 24 hours of abdominal pain and a small amount of vomiting. She had a CT scan performed showing small bowel obstruction. NG tube was placed in the emergency room and there is no record of the output from it initially; however, there is less than 50 cc in the container currently. The patient last had a bowel movement in the evening prior to admission and she is now feeling more comfortable. We recommend continuing the NG tube at least for another day. If it remains with no output, then this NG tube can be removed. She should continue to be n.p.o. until she passes some flatus and the pain more completely resolves and at that point diet can be advanced. I discussed with the patient that hopefully with conservative measures, this bowel obstruction may resolve on its own; however, if she fails to progress and improve in the next 3 to 4 days, then we will consider operative intervention and she understands this. I spent approximately 20 minutes in the coordination of care of this patient, more than half of which was face to face discussion and counseling. [id number]/[facility] #: [id number] SEKOU
[2018-05-04 10:59] LABS: Urine Appearance Cloudy; Urine Blood Negative (Negative); Urine Color Yellow; Urine Ketones 1+ (Negative); Urine Protein 1+(30 mg/dL) (Negative); Urine Red Blood Cell Absent (Absent); Urine Specific Gravity 1.029 (1.010-1.030); Urine Urobilinogen Negative (Negative); Urine White Blood Cell Trace(0-5/hpf) (Absent)
--- NOTE | 2018-05-04 15:35 | PN ---
Subjective Date of Service: 05/04/18 Interval History: Ms. Henriquez is feeling much better today. She reports that her pain resolved completely when the NG tube was placed. Not passing gas. Still somewhat bloated. She has been up to the bathroom and is ambulating without difficulty. She is hopeful to avoid surgery as she has had 2 abd surgeries in the past. Denies CP, SOB, dizziness. Family History: Unchanged from Admission Social History: Unchanged from Admission Past Medical History: Unchanged from Admission Objective Active Medications: Heparin Sodium (Porcine) (Heparin Vial(*)) 5,000 units SUBCUT Q8HR ANGELITA Sodium Chloride (Ns 0.9% 1000 Ml*) 1,000 mls @ 125 mls/hr IV PER RATE ANGELITA Morphine Sulfate (Morphine Vial*) 1 mg IV Q4H PRN PAIN - MILD Ondansetron HCl (Zofran Inj*) 4 mg IV Q4H PRN NAUSEA/VOMITING Vital Signs - 8 hr 05/04/18 05/04/18 05/04/18 07:28 07:50 11:41 Temperature 98.3 F 98.4 F Pulse Rate 66 64 Respiratory 16 16 18 Rate Blood Pressure 149/61 148/60 (mmHg) O2 Sat by Pulse 97 98 Oximetry Oxygen Devices in Use Now: None Appearance: Elderly female sitting in bed in NAD Eyes: No Scleral Icterus Ears/Nose/Mouth/Throat: Mucous Membranes Moist Neck: NL Appearance and Movements; NL JVP, Trachea Midline Respiratory: Symmetrical Chest Expansion and Respiratory Effort, Clear to Auscultation Cardiovascular: NL Sounds; No Murmurs; No JVD, RRR Abdominal: - - Normoactive BS throughout; Moderately distended; Tenderness to palpation over LLQ and epigastric region Extremities: No Edema, No Clubbing, Cyanosis Skin: No Rash or Ulcers Neurological: Alert and Oriented x 3 Lines/Tubes/Other Access: Clean, Dry and Intact Peripheral IV, Clean, Dry and Intact Other Access - NG Nutrition: Taking PO's Result Diagrams: 05/04/18 05:11 05/04/18 05:15 Assess/Plan/Problems-Billing Assessment: Ms. Henriquez is an 87 yo with PMH of SBO x2 s/p surgical intervention, and HLD who presented to the ED with c/o abd pain and vomiting and was found to have a SBO. - Patient Problems (1) Small bowel obstruction Current Visit: Yes Status: Acute Code(s): K56.609 - UNSP INTESTNL OBST, UNSP TO PARTIAL VERSUS COMPLETE OBST SNOMED Code(s): 770724739 Comment: - Pain and emesis resolved w/ NG tube - CT shows high-grade SBO w/ transition point in the ileum - Appreciate surgery consult; recommends conservative management for 3-4 days, then consider surgical intervention if not improved - Continue NG and NPO - Continue morphine and zofran (2) Hyperlipidemia Current Visit: Yes Status: Acute Code(s): E78.5 - HYPERLIPIDEMIA, UNSPECIFIED SNOMED Code(s): 84112656 Comment: - Hold atorvastatin while NPO (3) Osteoporosis Current Visit: Yes Status: Acute Code(s): M81.0 - AGE-RELATED OSTEOPOROSIS W /O CURRENT PATHOLOGICAL FRACTURE SNOMED Code(s): 81863945 Comment: - Supportive care - Supplements on hold while NPO (4) DVT prophylaxis Current Visit: Yes Status: Acute Code(s): QKF0586 - SNOMED Code(s): 500193441 Comment: - Heparin SQ (5) Full code status Current Visit: Yes Status: Acute Code(s): Z78.9 - OTHER SPECIFIED HEALTH STATUS SNOMED Code(s): 105192363 Status and Disposition: Inpatient for acute SBO requiring NG tube and possible surgical intervention. Anticipate d/c home when medically stable. Attending: Rebeka Negro
[2018-05-05] MEDS: Heparin VIAL(*) 5000 UNITS/ML VIAL (FIVE THOUSAND) SUBCUT SCH ×3 (05:44→22:16)
--- NOTE | 2018-05-05 10:00 | PN ---
Progress Note - Progress Note Date of Service: 05/05/18 Note: Surgery Progress Note S: Patient feeling well. Has no complaints of abdominal pain. No flatus. Ambulating to bathroom,. Objective: Vital Signs - 24 hr 05/04/18 05/04/18 05/04/18 11:41 15:17 19:45 Temperature 98.4 F 98.0 F 98.7 F Pulse Rate 64 58 69 Respiratory 18 16 20 Rate Blood Pressure 148/60 144/48 138/60 (mmHg) O2 Sat by Pulse 98 96 98 Oximetry 05/04/18 05/05/18 05/05/18 20:30 00:45 03:34 Temperature 97.8 F Pulse Rate 53 68 Respiratory 18 16 16 Rate Blood Pressure 144/60 144/58 (mmHg) O2 Sat by Pulse 97 96 Oximetry 05/05/18 04:00 Temperature 97.7 F Pulse Rate Respiratory Rate Blood Pressure (mmHg) O2 Sat by Pulse Oximetry Laboratory Results - last 24 hr 05/04/18 10:22 Urine Color Yellow Urine Appearance Cloudy Urine pH 8.0 Ur Specific [place] 1.029 Urine Protein 1+(30 mg/dl) A Urine Ketones 1+ A Urine Blood Negative Urine Nitrate Positive A Urine Bilirubin Negative Urine Urobilinogen Negative Ur Leukocyte Esterase 3+ A Urine WBC (Auto) Trace(0-5/hpf) Urine RBC (Auto) Absent Urine Bacteria Absent Urine Glucose Negative Intake & Output 05/04/18 05/05/18 05/05/18 22:59 06:59 14:59 Intake Total 990 0 Output Total 975 760 Balance 15 -760 Intake: IV Fluids 990 NS 990 Oral 0 Output: NG Tube Drainage Amount 200 460 Urine 775 300 Other: Estimated Void Small 05/04/18 10:22 Urine Color Yellow Urine Appearance Cloudy Urine pH 8.0 Ur Specific [place] 1.029 Urine Protein 1+(30 mg/dl) A Urine Ketones 1+ A Urine Blood Negative Urine Nitrate Positive A Urine Bilirubin Negative Urine Urobilinogen Negative Ur Leukocyte Esterase 3+ A Urine WBC (Auto) Trace(0-5/hpf) Urine RBC (Auto) Absent Urine Bacteria Absent Urine Glucose Negative Physical exam: Abd- soft, minimally tender in LLQ, mildly distended A/P: 87 yo F with small bowel obstruction. - NGT output still about 1 L. Recommend continuing for one more day and if output drops or has bowel function, could then remove NGT. - Please allow patient to be out of bed and ambulating more. Can disconnect from wall suction to do this.
[2018-05-05] MEDS: NS 0.9% 1000 ML* 1,000 ML IV SCH ×2 (13:58→22:58)
--- NOTE | 2018-05-05 17:59 | PN ---
Subjective Date of Service: 05/05/18 Interval History: Ms. Henriquez reports continued output from her NG. She denies flatus or passage of stool. She is not particularly tender in her abdomen and she denies much distention. She is up ambulating in the hallways frequently today. Family History: Unchanged from Admission Social History: Unchanged from Admission Past Medical History: Unchanged from Admission Objective Active Medications: Heparin Sodium (Porcine) (Heparin Vial(*)) 5,000 units SUBCUT Q8HR ANGELITA Sodium Chloride (Ns 0.9% 1000 Ml*) 1,000 mls @ 125 mls/hr IV PER RATE ANGELITA Morphine Sulfate (Morphine Vial*) 1 mg IV Q4H PRN Ondansetron HCl (Zofran Inj*) 4 mg IV Q4H PRN Vital Signs: Temp Pulse Resp BP Pulse Ox 97.7 F 66 16 146/65 96 05/05/18 11:18 05/05/18 11:18 05/05/18 11:18 05/05/18 11:18 05/05/18 11:18 Oxygen Devices in Use Now: None Appearance: Female up ambulating in hallways in NAD Eyes: No Scleral Icterus Ears/Nose/Mouth/Throat: Mucous Membranes Moist Neck: Trachea Midline Respiratory: Symmetrical Chest Expansion and Respiratory Effort, Clear to Auscultation Cardiovascular: NL Sounds; No Murmurs; No JVD, No Edema Abdominal: NL Sounds; No Tenderness; No Distention Extremities: No Edema Skin: No Rash or Ulcers Neurological: Alert and Oriented x 3, NL Muscle Strength and Tone Nutrition: Taking PO's Result Diagrams: 05/04/18 05:11 05/04/18 05:15 Microbiology and Other Data: Microbiology 05/04/18 10:22 Urine Culture - Preliminary Urine Providencia Rettgeri Assess/Plan/Problems-Billing Assessment: Ms. Henriquez is an 87 yo with PMH of SBO x2 s/p surgical intervention, and HLD who presented to the ED with c/o abd pain and vomiting and was found to have a SBO. - Patient Problems (1) Small bowel obstruction Comment: - Continued ouput from NG - CT shows high-grade SBO w/ transition point in the ileum - Appreciate surgery consult; recommends conservative management for 3-4 days, then consider surgical intervention if not improved - Continue NG and NPO - Continue morphine and zofran (2) UTI (urinary tract infection) Comment: - + nitrate and leuk esterase with positive culture - Plan to start cipro while awaiting sensitivities (3) Hyperlipidemia Comment: - Hold atorvastatin while NPO (4) Osteoporosis Comment: - Supportive care - Supplements on hold while NPO (5) DVT prophylaxis Comment: - Heparin SQ (6) Full code status Comment: Status and Disposition: Inpatient for acute SBO requiring NG tube and possible surgical intervention. Anticipate d/c home when medically stable.
[2018-05-05] MEDS: Ciprofloxacin 400MG IVPREMIX(* 400 MG/200 ML BAG IVPB SCH (19:27)
[2018-05-06] MEDS: Heparin VIAL(*) 5000 UNITS/ML VIAL (FIVE THOUSAND) SUBCUT SCH ×3 (06:03→21:51)
[2018-05-06] MEDS: Ciprofloxacin 400MG IVPREMIX(* 400 MG/200 ML BAG IVPB SCH ×2 (06:04→18:05)
[2018-05-06] MEDS: NS 0.9% 1000 ML* 1,000 ML IV SCH ×3 (07:56→16:17)
--- NOTE | 2018-05-06 08:47 | PN ---
Subjective Date of Service: 05/06/18 Interval History: Ms. Henriquez reports no bowel movement or flatus. She has no abdominal pain today. Her NG tube continues to have high output. She denies other complaint including chest pain or SOB. Family History: Unchanged from Admission Social History: Unchanged from Admission Past Medical History: Unchanged from Admission Objective Active Medications: Heparin Sodium (Porcine) (Heparin Vial(*)) 5,000 units SUBCUT Q8HR [facility] Sodium Chloride (Ns 0.9% 1000 Ml*) 1,000 mls @ 125 mls/hr IV PER RATE ANG[facility] Ciprofloxacin/Dextrose (Cipro 400 Mg Ivpremix(*)) 400 mg in 200 mls @ 200 mls/ hr IVPB Q12H [facility] Morphine Sulfate (Morphine Vial*) 1 mg IV Q4H PRN Ondansetron HCl (Zofran Inj*) 4 mg IV Q4H PRN Vital Signs: Temp Pulse Resp BP Pulse Ox 97.7 F 55 16 134/36 95 05/06/18 07:27 05/06/18 07:27 05/06/18 08:00 05/06/18 07:27 05/06/18 07:27 Oxygen Devices in Use Now: None Appearance: Female lying in bed in NAD Eyes: No Scleral Icterus Ears/Nose/Mouth/Throat: Mucous Membranes Moist Neck: Trachea Midline Respiratory: Symmetrical Chest Expansion and Respiratory Effort, Clear to Auscultation Cardiovascular: NL Sounds; No Murmurs; No JVD, No Edema Abdominal: - - Soft, nontender, BS hypoactive Lymphatic: No Cervical Adenopathy Extremities: No Edema Skin: No Rash or Ulcers Neurological: Alert and Oriented x 3, NL Muscle Strength and Tone Nutrition: Taking PO's Result Diagrams: 05/04/18 05:11 05/04/18 05:15 Microbiology and Other Data: . Assess/Plan/Problems-Billing Assessment: Ms. Henriquez is an 87 yo with PMH of SBO x2 s/p surgical intervention, and HLD who presented to the ED with c/o abd pain and vomiting and was found to have a SBO. - Patient Problems (1) Small bowel obstruction Comment: - Continued ouput from NG - CT shows high-grade SBO w/ transition point in the ileum - Appreciate surgery consult; recommends conservative management for 3-4 days, then consider surgical intervention if not improved - Continue NG and NPO - Continue morphine and zofran (2) UTI (urinary tract infection) Comment: - Continue cipro x 5 day course (3) Hyperlipidemia Comment: - Hold atorvastatin while NPO (4) Osteoporosis Comment: - Supportive care - Supplements on hold while NPO (5) DVT prophylaxis Comment: - Heparin SQ (6) Full code status Comment: Status and Disposition: Inpatient for acute SBO requiring NG tube and possible surgical intervention. Anticipate d/c home when medically stable.
--- NOTE | 2018-05-06 11:03 | PN ---
Progress Note - Progress Note Date of Service: 05/06/18 Note: HD#3 SBO Afeb, VS OK Voiding well NG moderately large output No pain No flatus Abd soft, non-tender, mild distension, quiet Await resolution of SBO Will recheck AXR If not resolved 1-2 days, may need OR
[2018-05-07] MEDS: Enalaprilat IV* 1.25 MG/ML 1 ML VIAL (1.25 MG) IV PRN ×2 (04:25→11:29)
[2018-05-07 05:58] LABS: ABS Basophils 0.1 10^3/ul (0-0.2); ABS Eosinophils 0.4 10^3/ul (0-0.6); ABS Lymphocytes 1.4 10^3/ul (1.0-4.8); ABS Monocytes 0.6 10^3/ul (0-0.8); ABS Nucleated RBC 0 10^3/ul; Hematocrit 35 % (35-47); Lymphocyte % 22.2 %; Mean Corpuscular HGB Conc 34 g/dl (31-36); Mean Corpuscular Hemoglobin 30 pg (27-31); Mean Corpuscular Volume 88 fL (80-97); Mean Platelet Volume 8.1 fL (7.4-10.4); Nucleated Red Blood Cells % 0; Platelet Count 221 10^3/ul (150-450); Red Blood Count 4.01 10^6/ul (4.00-5.40); Red Cell Distribution Width 14 % (10.5-15); White Blood Count 6.5 10^3/ul (3.5-10.8)
[2018-05-07] MEDS: Ciprofloxacin 400MG IVPREMIX(* 400 MG/200 ML BAG IVPB SCH ×2 (06:16→18:17)
[2018-05-07] MEDS: Heparin VIAL(*) 5000 UNITS/ML VIAL (FIVE THOUSAND) SUBCUT SCH ×3 (06:17→22:04)
[2018-05-07] MEDS: NS 0.9% 1000 ML* 1,000 ML IV SCH (09:16)
[2018-05-07] MEDS: KCL 20 MEQ/100 ML IVPREMIX* 20 MEQ/100 ML BAG IV SCH ×2 (09:18→13:21)
--- NOTE | 2018-05-07 11:49 | PN ---
Progress Note - Progress Note Date of Service: 05/07/18 Note: SBO Feels better, No N/V No pain Passed some flatus Voiding well Still moderate NG output Abd soft non-tender, min distension AXR--resolving SBO SBO seems to be resolving. Will D/C NG and assess for tolerance before starting po's
--- NOTE | 2018-05-07 12:57 | PN ---
Subjective Date of Service: 05/07/18 Interval History: No overnight events. Dr. Toledo pulled NGT today. Feels much better with it out. Passing minimal flatus. No BM still. No abdominal pain. No CP. No SOB. Daughter in law at the bedside. In good spirits. Ambulating. Remains NPO- just ice chips Family History: Unchanged from Admission Social History: Unchanged from Admission Past Medical History: Unchanged from Admission Objective Active Medications: Heparin Sodium (Porcine) (Heparin Vial(*)) 5,000 units SUBCUT Q8HR [facility] Last Admin: 05/07/18 06:17 Dose: 5,000 units Ciprofloxacin/Dextrose (Cipro 400 Mg Ivpremix(*)) 400 mg in 200 mls @ 200 mls/ hr IVPB Q12H [facility] Stop: 05/10/18 18:29 Last Admin: 05/07/18 06:16 Dose: 200 mls/hr Potassium Chloride (Potassium Chloride 20 Meq/100 Ml Ivpremix*) 20 meq in 100 mls @ 50 mls/hr IV Q2H [facility] Stop: 05/07/18 12:59 Last Admin: 05/07/18 09:18 Dose: 50 mls/hr Sodium Chloride (Ns 0.9% 1000 Ml*) 1,000 mls @ 40 mls/hr IV PER RATE [facility] Morphine Sulfate (Morphine Vial*) 1 mg IV Q4H PRN PRN Reason: PAIN - MILD Ondansetron HCl (Zofran Inj*) 4 mg IV Q4H PRN PRN Reason: NAUSEA/VOMITING Vital Signs - 8 hr 05/07/18 05/07/18 05/07/18 07:31 08:00 11:19 Temperature 98.6 F 97.8 F Pulse Rate 55 64 Respiratory 16 18 16 Rate Blood Pressure 153/65 157/59 (mmHg) O2 Sat by Pulse 95 100 Oximetry Oxygen Devices in Use Now: None Ears/Nose/Mouth/Throat: Mucous Membranes Moist Neck: Trachea Midline Respiratory: Symmetrical Chest Expansion and Respiratory Effort, Clear to Auscultation Cardiovascular: RRR, - - systolic murmur prominent on left Abdominal: - - +BS - very active. Mild distention, soft, NT Extremities: No Edema Neurological: Alert and Oriented x 3, NL Muscle Strength and Tone Result Diagrams: 05/07/18 05:34 05/07/18 05:34 Microbiology and Other Data: . Assess/Plan/Problems-Billing Assessment: Ms. Henriquez is an 87 yo with PMH of SBO x2 s/p surgical intervention, and HLD who presented to the ED with c/o abd pain and vomiting and was found to have a SBO. - Patient Problems (1) Osteoporosis Current Visit: Yes Status: Acute Code(s): M81.0 - AGE-RELATED OSTEOPOROSIS W /O CURRENT PATHOLOGICAL FRACTURE SNOMED Code(s): 19671387 Comment: - Supportive care - Supplements on hold while NPO (2) Small bowel obstruction Current Visit: Yes Status: Acute Code(s): K56.609 - UNSP INTESTNL OBST, UNSP TO PARTIAL VERSUS COMPLETE OBST SNOMED Code(s): 710449806 Comment: A. Improving - Likely secondary to adhesions NGT removed today Spoke with Dr. Toledo - Plan Keep NPO today. Surgery to see and determine if she can start clears in AM (3) UTI (urinary tract infection) Current Visit: Yes Status: Acute Comment: - Continue cipro x 5 day course To be completed on 05/10 (4) Hyperlipidemia Current Visit: Yes Status: Acute Code(s): E78.5 - HYPERLIPIDEMIA, UNSPECIFIED SNOMED Code(s): 46581981 Comment: - Hold atorvastatin while NPO (5) DVT prophylaxis Current Visit: Yes Status: Acute Code(s): WOC4422 - SNOMED Code(s): 574141025 Comment: - Heparin SQ (6) DNR (do not resuscitate) Current Visit: Yes Status: Acute Status and Disposition: If able to advance diet in AM suspect 1-2 more days as inpatient for SBO
[2018-05-08] MEDS: Heparin VIAL(*) 5000 UNITS/ML VIAL (FIVE THOUSAND) SUBCUT SCH ×3 (05:54→22:20)
[2018-05-08] MEDS: Ciprofloxacin 400MG IVPREMIX(* 400 MG/200 ML BAG IVPB SCH ×2 (05:55→20:03)
[2018-05-08 06:37] LABS: EGFR Non-African American 155.5 (>60)
--- NOTE | 2018-05-08 08:14 | PN ---
Progress Note - Progress Note Date of Service: 05/08/18 Note: SBO Afeb, VS noted No N/V, getting a little hungry Passed flatus and small stool Ambulating No pain Abd soft, still some distension, still some tympany, non-tender Will start clear liquids
[2018-05-08] MEDS: KCL 20 MEQ/100 ML IVPREMIX* 20 MEQ/100 ML BAG IV SCH ×2 (09:06→14:24)
[2018-05-08] MEDS: NS 0.9% 1000 ML* 1,000 ML IV SCH (09:06)
--- NOTE | 2018-05-08 17:00 | PN ---
Subjective Date of Service: 05/08/18 Interval History: Ms. Henriquez is feeling better today. She has been able to tolerate clear liquids well. She is passing gas. No N/V. Has been up ambulating around the unit often. Denies CP, SOB, dizziness. Family History: Unchanged from Admission Social History: Unchanged from Admission Past Medical History: Unchanged from Admission Objective Active Medications: Heparin Sodium (Porcine) (Heparin Vial(*)) 5,000 units SUBCUT Q8HR [facility] Ciprofloxacin/Dextrose (Cipro 400 Mg Ivpremix(*)) 400 mg in 200 mls @ 200 mls/ hr IVPB Q12H [facility] Sodium Chloride (Ns 0.9% 1000 Ml*) 1,000 mls @ 40 mls/hr IV PER RATE [facility] Morphine Sulfate (Morphine Vial*) 1 mg IV Q4H PRN PAIN - MILD Ondansetron HCl (Zofran Inj*) 4 mg IV Q4H PRN NAUSEA/VOMITING Vital Signs - 8 hr 05/08/18 11:47 Temperature 98.4 F Pulse Rate 47 Respiratory 16 Rate Blood Pressure 147/59 (mmHg) O2 Sat by Pulse 100 Oximetry Oxygen Devices in Use Now: None Appearance: Elderly female sitting in bed in NAD Eyes: No Scleral Icterus Ears/Nose/Mouth/Throat: Mucous Membranes Moist Neck: NL Appearance and Movements; NL JVP, Trachea Midline Respiratory: Symmetrical Chest Expansion and Respiratory Effort, Clear to Auscultation Cardiovascular: NL Sounds; No Murmurs; No JVD, RRR Abdominal: NL Sounds; No Tenderness; No Distention Extremities: No Edema Skin: No Rash or Ulcers Neurological: Alert and Oriented x 3 Lines/Tubes/Other Access: Clean, Dry and Intact Peripheral IV Nutrition: Taking PO's Result Diagrams: 05/07/18 05:34 05/08/18 05:26 Assess/Plan/Problems-Billing Assessment: Ms. Henriquez is an 87 yo with PMH of SBO x2 s/p surgical intervention, and HLD who presented to the ED with c/o abd pain and vomiting and was found to have a SBO. - Patient Problems (1) Small bowel obstruction Current Visit: Yes Status: Acute Code(s): K56.609 - UNSP INTESTNL OBST, UNSP TO PARTIAL VERSUS COMPLETE OBST SNOMED Code(s): 716727363 Comment: - Likely secondary to adhesions - Clinically improving - Continue clear liquids per surgery (2) UTI (urinary tract infection) Current Visit: Yes Status: Acute Comment: - With >100k colonies providencia rettgeri - Continue cipro x5 day course; finish on 05/10 (3) Hyperlipidemia Current Visit: Yes Status: Acute Code(s): E78.5 - HYPERLIPIDEMIA, UNSPECIFIED SNOMED Code(s): 70604510 Comment: - Resume atorvastatin (4) Osteoporosis Current Visit: Yes Status: Acute Code(s): M81.0 - AGE-RELATED OSTEOPOROSIS W /O CURRENT PATHOLOGICAL FRACTURE SNOMED Code(s): 23597613 Comment: - Supportive care - Supplements on hold (5) DVT prophylaxis Current Visit: Yes Status: Acute Code(s): SRD7369 - SNOMED Code(s): 809095504 Comment: - Heparin SQ (6) DNR (do not resuscitate) Current Visit: Yes Status: Acute Status and Disposition: Inpatient. If able to advance diet in AM suspect 1-2 more days as inpatient for SBO. Attending: Kobi Patton
[2018-05-08] MEDS: Atorvastatin* 20 MG TAB PO SCH (22:20)
[2018-05-09 05:32] LABS: EGFR Non-African American 155.5 (>60)
[2018-05-09] MEDS: Ciprofloxacin 400MG IVPREMIX(* 400 MG/200 ML BAG IVPB SCH ×2 (05:55→21:19)
[2018-05-09] MEDS: Heparin VIAL(*) 5000 UNITS/ML VIAL (FIVE THOUSAND) SUBCUT SCH ×3 (05:57→21:34)
[2018-05-09] MEDS: NS 0.9% 1000 ML* 1,000 ML IV SCH (09:18)
--- NOTE | 2018-05-09 09:28 | PN ---
Progress Note - Progress Note Date of Service: 05/09/18 Note: SBO Afeb, VS noted UO large, I<O No pain Kwaku liqs, No N/V Not much more flatus since I saw her yest. Abd remains distended, non-tender Still not completely resolved SBO I am hesitant to advance to solid food without more flatus--still quite bloated If not better, may still end up needing laparotomy.
--- NOTE | 2018-05-09 13:52 | PN ---
Subjective Date of Service: 05/09/18 Interval History: Ms. Henriquez is feeling ok today. She is unhappy that her SBO does not seem to be improving and she would like to avoid surgery. She has been ambulating around the unit 5x per day, 30 min at a time. She is tolerating clears. No flatus. Denies CP, SOB, N/V, dizziness. Family History: Unchanged from Admission Social History: Unchanged from Admission Past Medical History: Unchanged from Admission Objective Active Medications: Atorvastatin Calcium (Lipitor*) 20 mg PO BEDTIME [facility] Heparin Sodium (Porcine) (Heparin Vial(*)) 5,000 units SUBCUT Q8HR [facility] Ciprofloxacin/Dextrose (Cipro 400 Mg Ivpremix(*)) 400 mg in 200 mls @ 200 mls/ hr IVPB Q12H [facility] Potassium Chloride (Potassium Chloride 20 Meq/100 Ml Ivpremix*) 20 meq in 100 mls @ 50 mls/hr IV Q2H [facility] Potassium Chloride/Sodium Chloride (Ns 0.9% W/ 20 Meq Kcl 1000 Ml*) 1,000 mls @ 125 mls/hr IV PER RATE [facility] Morphine Sulfate (Morphine Vial*) 1 mg IV Q4H PRN PAIN - MILD Ondansetron HCl (Zofran Inj*) 4 mg IV Q4H PRN NAUSEA/VOMITING Vital Signs - 8 hr 05/09/18 05/09/18 05/09/18 07:19 08:00 11:24 Temperature 97.2 F 97.9 F Pulse Rate 62 63 Respiratory 16 16 16 Rate Blood Pressure 139/73 132/55 (mmHg) O2 Sat by Pulse 97 97 Oximetry Oxygen Devices in Use Now: None Appearance: Elderly female sitting in bed in NAD Eyes: No Scleral Icterus Ears/Nose/Mouth/Throat: Mucous Membranes Moist Neck: NL Appearance and Movements; NL JVP, Trachea Midline Respiratory: Symmetrical Chest Expansion and Respiratory Effort, Clear to Auscultation Cardiovascular: NL Sounds; No Murmurs; No JVD, RRR Abdominal: - - Distended, nontender Extremities: No Edema Skin: No Rash or Ulcers Neurological: Alert and Oriented x 3, NL Gait, NL Muscle Strength and Tone Lines/Tubes/Other Access: Clean, Dry and Intact Peripheral IV Nutrition: Taking PO's Result Diagrams: 05/07/18 05:34 12/11/18 04:59 Assess/Plan/Problems-Billing Assessment: Ms. Henriquez is an 87 yo with PMH of SBO x2 s/p surgical intervention, and HLD who presented to the ED with c/o abd pain and vomiting and was found to have a SBO. - Patient Problems (1) Small bowel obstruction Current Visit: Yes Status: Acute Code(s): K56.609 - UNSP INTESTNL OBST, UNSP TO PARTIAL VERSUS COMPLETE OBST SNOMED Code(s): 622222936 Comment: - Likely secondary to adhesions - Clinically stable - Continue clear liquids per surgery; possible laparotomy if no improvement (2) UTI (urinary tract infection) Current Visit: Yes Status: Acute Comment: - With >100k colonies providencia rettgeri - Continue cipro x5 day course; finish on 05/10 (3) Hyperlipidemia Current Visit: Yes Status: Acute Code(s): E78.5 - HYPERLIPIDEMIA, UNSPECIFIED SNOMED Code(s): 57790825 Comment: - Continue atorvastatin (4) Osteoporosis Current Visit: Yes Status: Acute Code(s): M81.0 - AGE-RELATED OSTEOPOROSIS W /O CURRENT PATHOLOGICAL FRACTURE SNOMED Code(s): 45188056 Comment: - Supportive care - Supplements on hold (5) DVT prophylaxis Current Visit: Yes Status: Acute Code(s): ANU9254 - SNOMED Code(s): 213395028 Comment: - Heparin SQ (6) DNR (do not resuscitate) Current Visit: Yes Status: Acute Status and Disposition: Inpatient. Anticipate d/c home when medically stable. Attending: Kobi Patton
[2018-05-09] MEDS: KCL 20 MEQ/100 ML IVPREMIX* 20 MEQ/100 ML BAG IV SCH ×2 (14:57→23:32)
[2018-05-09] MEDS: NS 0.9% w/ 20 Meq KCL 1000 ML* 1,000 ML IV SCH (17:12)
[2018-05-09] MEDS: Atorvastatin* 20 MG TAB PO SCH (21:34)
[2018-05-10] MEDS: NS 0.9% w/ 20 Meq KCL 1000 ML* 1,000 ML IV SCH ×2 (04:54→14:28)
[2018-05-10] MEDS: Ciprofloxacin 400MG IVPREMIX(* 400 MG/200 ML BAG IVPB SCH (06:10)
[2018-05-10] MEDS: Heparin VIAL(*) 5000 UNITS/ML VIAL (FIVE THOUSAND) SUBCUT SCH ×3 (06:11→21:40)
[2018-05-10 06:47] LABS: EGFR Non-African American 170.5 (>60)
--- NOTE | 2018-05-10 08:12 | PN ---
Progress Note - Progress Note Date of Service: 05/10/18 Note: SBO Afeb, VS OK No pain Kwaku liqs, No N/V No stool or flatus last 24 hrs. Abd soft, still mild distension and tympany, non-tender Feels well, but lack of GI function concerning. Thus, I am hesitant to advance diet. Will check CT scan to assess.
[2018-05-10] MEDS: amLODIPine TAB* 5 MG PO SCH (10:31)
--- NOTE | 2018-05-10 12:44 | PN ---
Progress Note - Progress Note Date of Service: 05/10/18 Note: ADDENDUM: CT scan shows good flow through the small bowel. Will advance diet.
--- NOTE | 2018-05-10 16:24 | PN ---
Subjective Date of Service: 05/10/18 Interval History: Ms. Henriquez is feeling well today. She continues to ambulate around the unit , approx 6 miles per day to her estimation. She has been tolerating clear well. Passing a small amount of gas today. Denies CP, SOB, N/V/D, dizziness. Looking forward to attempting full liquids at dinner. Anxious to return home and hoping to avoid surgery. Family History: Unchanged from Admission Social History: Unchanged from Admission Past Medical History: Unchanged from Admission Objective Active Medications: Amlodipine Besylate (Norvasc Tab*) 5 mg PO DAILY [facility] Atorvastatin Calcium (Lipitor*) 20 mg PO BEDTIME [facility] Heparin Sodium (Porcine) (Heparin Vial(*)) 5,000 units SUBCUT Q8HR [facility] Ciprofloxacin/Dextrose (Cipro 400 Mg Ivpremix(*)) 400 mg in 200 mls @ 200 mls/ hr IVPB Q12H [facility] Potassium Chloride/Sodium Chloride (Ns 0.9% W/ 20 Meq Kcl 1000 Ml*) 1,000 mls @ 125 mls/hr IV PER RATE [facility] Morphine Sulfate (Morphine Vial*) 1 mg IV Q4H PRN PAIN - MILD Ondansetron HCl (Zofran Inj*) 4 mg IV Q4H PRN NAUSEA/VOMITING Vital Signs - 8 hr 05/10/18 05/10/18 11:10 15:23 Temperature 97.4 F 97.9 F Pulse Rate 59 63 Respiratory 16 18 Rate Blood Pressure 166/66 146/58 (mmHg) O2 Sat by Pulse 99 94 Oximetry Oxygen Devices in Use Now: None Appearance: Elderly female sitting in bed in NAD Eyes: No Scleral Icterus Ears/Nose/Mouth/Throat: Mucous Membranes Moist Neck: NL Appearance and Movements; NL JVP, Trachea Midline Respiratory: Symmetrical Chest Expansion and Respiratory Effort, Clear to Auscultation Cardiovascular: NL Sounds; No Murmurs; No JVD, RRR Abdominal: NL Sounds; No Tenderness; No Distention Extremities: No Edema Skin: No Rash or Ulcers Neurological: Alert and Oriented x 3, NL Gait, NL Muscle Strength and Tone Lines/Tubes/Other Access: Clean, Dry and Intact Peripheral IV Nutrition: Taking PO's Result Diagrams: 05/07/18 05:34 05/10/18 06:02 Assess/Plan/Problems-Billing Assessment: Ms. Henriquez is an 87 yo with PMH of SBO x2 s/p surgical intervention, and HLD who presented to the ED with c/o abd pain and vomiting and was found to have a SBO. - Patient Problems (1) Small bowel obstruction Current Visit: Yes Status: Acute Code(s): K56.609 - UNSP INTESTNL OBST, UNSP TO PARTIAL VERSUS COMPLETE OBST SNOMED Code(s): 265534240 Comment: - Likely secondary to adhesions - CT today showing improvement - Advance to full liquids per surgery - Stop IVF (2) UTI (urinary tract infection) Current Visit: Yes Status: Acute Comment: - With >100k colonies providencia rettgeri - Continue cipro; will change to PO as IV access was lost; last dose tonight (3) Hyperlipidemia Current Visit: Yes Status: Acute Code(s): E78.5 - HYPERLIPIDEMIA, UNSPECIFIED SNOMED Code(s): 86617444 Comment: - Continue atorvastatin (4) Osteoporosis Current Visit: Yes Status: Acute Code(s): M81.0 - AGE-RELATED OSTEOPOROSIS W /O CURRENT PATHOLOGICAL FRACTURE SNOMED Code(s): 81040222 Comment: - Supportive care - Supplements on hold (5) DVT prophylaxis Current Visit: Yes Status: Acute Code(s): KAL1048 - SNOMED Code(s): 748395231 Comment: - Heparin SQ (6) DNR (do not resuscitate) Current Visit: Yes Status: Acute Status and Disposition: Inpatient. Anticipate d/c home when medically stable, possibly tomorrow. Attending: Ariella Allison
[2018-05-10] MEDS ORDERED: Ciprofloxacin TAB* 250 MG PO ONE (18:00)
[2018-05-10] MEDS: Atorvastatin* 20 MG TAB PO SCH (21:40)
[2018-05-11 04:12] VITALS: BP 134/60
[2018-05-11] MEDS: Heparin VIAL(*) 5000 UNITS/ML VIAL (FIVE THOUSAND) SUBCUT SCH (06:14)
[2018-05-11] MEDS: amLODIPine TAB* 5 MG PO SCH (09:10)
--- NOTE | 2018-05-11 12:10 | PN ---
Progress Note - Progress Note Date of Service: 05/11/18 Note: Surgery Progress: S: Feels fine. No abd pain. Had both passage of flatus and large soft stool this a.m. Has tolerated full liq diet. O: Intake and Output Last 24 Hours 05/09/18 05/10/18 05/11/18 05/12/18 06:59 06:59 06:59 06:59 Intake Total 1977 3922 4440 360 Output Total 2250 3000 3525 700 Balance -273 922 915 -340 Intake: IV Fluids 1077 2502 1190 ABX - CIPROFLOXACIN 419 210 NS 1077 897 NS (0.9%) 20 meq KCL 978 980 kcl 208 IVPB 100 kcl 100 Oral 800 1420 3250 360 Output: Urine 2250 3000 3525 700 Other: # Bowel Movements 0 Estimated Stool Amount Small Heart: reg Lungs: clear Abd: +BS; soft; nontender CT from yesterday reviewed personally and with Dr. Toledo A/P: SBO, cont to resolve. Dispo per hospitalist, but would think she could be discharged and to advance diet gradually for the next few days. Surgical f/u as needed.
--- NOTE | 2018-05-11 17:12 | DS ---
CC: Dr. Yareli Wu; Dr. Milton Toledo * DISCHARGE SUMMARY: DATE OF ADMISSION: 05/04/18 DATE OF DISCHARGE: 05/11/18 PRIMARY CARE PROVIDER: Dr. Yareli Wu. GENERAL SURGEON: Dr. Milton Toledo. ATTENDING PHYSICIAN: Dr. Ariella Casas * (dictated by Chetna Aaron NP). PRIMARY DIAGNOSES: 1. Small bowel obstruction. 2. Urinary tract infection. 3. Hypertension. SECONDARY DIAGNOSES: 1. Hyperlipidemia. 2. Osteoporosis. STUDIES WHILE IN THE HOSPITAL: 1. Abdomen and pelvis CT on 05/03/18 reads as high-grade small bowel obstruction with transition point in the ileum. Colonic diverticulosis with no evidence of acute diverticulitis. Hiatal hernia with reflux. 2. Abdominal x-ray on 05/07/18 reads as resolution of partial small bowel obstruction. 3. Abdomen and pelvis CT on 05/10/18 reads as new small left pleural effusion. Interval resolution of small bowel obstruction. CONSULTATIONS WHILE IN THE HOSPITAL: 1. The patient was seen in consultation by Dr. Arana from Surgery on 05/04/18 for small bowel obstruction. She was thereafter followed by Dr. Toledo. HISTORY OF PRESENT ILLNESS AND HOSPITAL COURSE: Ms. Henriquez is an 87-year- old female with past medical history of small bowel obstruction x2 (in 1988 and 1990) both requiring surgery, hyperlipidemia and osteoporosis, who presented to the emergency room on 05/04/18 with complaints of abdominal pain. Please see the history and physical by Dr. Mitchell for a complete summary of the events leading up to this hospitalization. In short, the patient awoke with abdominal pain. She attempted to drink some water, which she vomited. She continued to have significant nausea and vomiting throughout the day and presented to the emergency room. In the emergency room, she was found to have a small bowel obstruction as noted on imaging. Surgery was consulted. At that point, Dr. Arana placed an NG tube and felt as though it was reasonable to treat with conservative measures over the next 3 to 4 days. She was admitted by the hospitalist service. The patient remained n.p.o. and was hydrated with IV fluids. She had a slow recovery and ultimately had her NG tube removed on 05/07/18 after an abdominal x - ray indicated that the obstruction was resolving. The patient was started on clear liquids, which she was tolerating well. She remained significantly distended. She did not have any abdominal pain. She was not passing any gas initially, but began to pass gas within the next couple days. On 05/10/18, the patient was advanced to a full liquid diet, which she tolerated well. She has had no nausea or vomiting. No further abdominal pain and no tenderness on palpation. She has been ambulating around the unit often during the day and was very motivated to avoid surgery. As of today, the patient has been seen by Surgery, who may feel as though the patient is stable for discharge home. She has been advised to advance her diet gradually over the next few days and follow up with Surgery as needed. I will also note that the patient had a urine culture which grew greater than 100,000 colonies of Providencia rettgeri. She was given a 5-day course of ciprofloxacin and finished the course on 05/10. She has no urinary symptoms. The patient has had some elevated blood pressures while here in the hospital with SBPs ranging from the 130s to the 160s. She was started on amlodipine 5 mg daily, which she tolerated well and her blood pressure has improved with systolics in the 120s to 130s. As of today , the patient reports feeling well. She is anxious to return home. She has been up ambulating without difficulty. She denies any abdominal pain, nausea, or vomiting. She has no tenderness on palpation and is passing some gas. She did tolerate full liquids this morning. Ms. Henriquez is stable for discharge today. Vital signs are as follows: Temp 97.6, heart rate 50, respiratory rate 16, oxygen saturation 96% on room air , blood pressure 134/60. DISCHARGE MEDICATIONS: Continued medications: 1. Atorvastatin 20 mg p.o. at bedtime. 2. Aspirin 81 mg p.o. daily. 3. Vitamin D 2000 units p.o. daily. 4. Vitamin B12 1000 mcg p.o. daily. 5. Ibuprofen 400 mg p.o. t.i.d. p.r.n. pain. 6. Fish oil 2 caps p.o. daily. 7. Zoledronic acid 5 mg IV per usual schedule. DISCHARGE PLAN: Ms. Henriquez will be discharged home. Activity will be as tolerated. Diet per Surgery is: Gradually advance your diet over the next few days, avoid foods that are harder to digest and/or gassy, be sure to stay hydrated. Medications are noted above. The patient can resume her usual home medications. No changes have been made. I did discuss with the patient her elevated blood pressure and I did strongly recommend that she continue taking amlodipine daily to manage her blood pressure. She reported that her blood pressure is typically well controlled off medication and did not want to continue amlodipine at this time. She reported that she will follow up with her primary care provider and will determine at that point if she would like to resume an antihypertensive agent. She should follow up with her primary care provider in 4 to 7 days. She should return to the emergency room or nearest hospital for any worsening of symptoms, shortness of breath, lightheadedness, dizziness, chest discomfort, high fevers, chills, night sweats, loss of consciousness, or any other worrisome signs or symptoms. This is a summarized report of a complex medical history and hospital stay. For further details, please see the entire medical record. TIME SPENT: Approximately 40 minutes were spent on this discharge, greater than half of that time spent [id number] with the patient discussing discharge plans and instructions. CHETNA AARON NP [id number]/[facility] #: [id number] [place]
== END 2018-05-11 14:20 | disposition home or self-care (01) | DRG 389 ==
LOC: ED 22:20 → SSU 05-04 02:15
PROVIDERS: ADMIT Pediatrics; ATTEND Internal Medicine
PROC: 0DH67UZ Insertion of Feeding Device into Stomach, Via Natural or Artificial Opening (ICD-10-PCS; principal; 2018-05-04)
PROC: 0DP6XUZ Removal of Feeding Device from Stomach, External Approach (ICD-10-PCS; 2018-05-07)
DX: K56.609 Unspecified intestinal obstruction, unspecified as to partial versus complete obstruction (principal); N39.0 Urinary tract infection, site not specified; J90 Pleural effusion, not elsewhere classified; M81.0 Age-related osteoporosis without current pathological fracture; K57.30 Diverticulosis of large intestine without perforation or abscess without bleeding; M19.90 Unspecified osteoarthritis, unspecified site; E78.5 Hyperlipidemia, unspecified; Z66 Do not resuscitate; M19.049 Primary osteoarthritis, unspecified hand; K44.9 Diaphragmatic hernia without obstruction or gangrene; I10 Essential (primary) hypertension; Z46.89 Encounter for fitting and adjustment of other specified devices; Z30.2 Encounter for sterilization; Z87.440 Personal history of urinary (tract) infections; Z98.42 Cataract extraction status, left eye; Z98.41 Cataract extraction status, right eye; Z79.82 Long term (current) use of aspirin
CPT/HCPCS: 36415; 74019; 74176; 74177; 80048; 80053; 81003; 81015; 82150; 83605; 83690; 83735; 85025; 85610; 85730; 86140; 87077; 87086; 87181; 87186; 99283; A9270-GY; J0744; J1644; J3480; Q9967

== ENCOUNTER 2018-12-16 16:00 | Inpatient (IN) | payer MEDICARE, OTHER ==
[2018-12-16 18:23] LABS: ABS Basophils 0.1 10^3/ul (0-0.2); ABS Lymphocytes 0.8 10^3/ul (1.0-4.8); ABS Monocytes 0.9 10^3/ul (0-0.8); ABS Neutrophils 10.3 10^3/ul (1.5-7.7); Hematocrit 37 % (35-47); Hemoglobin 12.5 g/dL (12.0-16.0); Mean Corpuscular HGB Conc 34 g/dL (31-36); Mean Corpuscular Hemoglobin 29 pg (27-31); Mean Corpuscular Volume 87 fL (80-97); Mean Platelet Volume 7.2 fL (7.4-10.4); Platelet Count 222 10^3/uL (150-450); Red Blood Count 4.27 10^6 /uL (3.70-4.87); Red Cell Distribution Width 14 % (10-15)
[2018-12-16] MEDS ORDERED: Morphine 4 MG/ML VIAL (1 ml) 4 MG/ML VIAL IV ONE (18:24)
[2018-12-16] MEDS ORDERED: Ondansetron INJ* 2 MG/ML VIAL IV ONE (18:24)
[2018-12-16] MEDS ORDERED: NS 0.9% 1000 ML** 1,000 ML IV ONE (18:24)
[2018-12-16 18:40] LABS: ALT 13 U/L (7-52); AST 16 U/L (13-39); Albumin 3.8 g/dL (3.2-5.2); Albumin/Globulin Ratio 1.1 (1-3); Alkaline Phosphatase 62 U/L (34-104); Amylase 18 U/L (29-103); Anion Gap 6 mmol/L (2-11); BUN/Creatinine Ratio 21.3 (8-20); Blood Urea Nitrogen 10 mg/dL (6-24); C Reactive Protein 65.73 mg/L (<8.01); CO2 Carbon Dioxide 23 mmol/L (22-32); Calcium 9.9 mg/dL (8.6-10.3); Chloride 100 mmol/L (101-111); EGFR African American 151.3 (>60); EGFR Non-African American 125.1 (>60); Globulin 3.4 g/dL (2-4); Glucose 114 mg/dL (70-100); Potassium 3.9 mmol/L (3.5-5.0); Sodium 129 mmol/L (135-145); Total Protein 7.2 g/dL (6.4-8.9)
[2018-12-16 18:45] LABS: Urine Appearance Turbid; Urine Bacteria Absent (Absent); Urine Bilirubin Negative (Negative); Urine Blood 2+ (Negative); Urine Color Amber; Urine Glucose Negative (Negative); Urine Ketones 1+ (Negative); Urine Nitrite Positive (Negative); Urine Protein 2+(100 mg/dL) (Negative); Urine Red Blood Cell 2+(6-10/hpf) (Absent); Urine Specific Gravity 1.011 (1.010-1.030); Urine Squamous Epithelial Cell Present (Absent); Urine Urobilinogen Negative (Negative); Urine White Blood Cell 3+(>20/hpf) (Absent)
--- NOTE | 2018-12-16 18:46 | ED ---
Abdominal Pain/Female - HPI Summary HPI Summary: This patient is an 88 year old F presenting to ED with a chief complaint of lower abdominal pain since 2 days ago. Patient has a history of SBO with two surgical repairs (1988 and 1990) in the past. Her last SBO was in April 2018 , but it did not require surgical intervention. Patient reports nausea, decreased appetite, bloating, and constipation for the past 2 days. Patient states she ate breakfast today. Patient reports she usually has normal bowel movements. The patient rates the pain 3/10 in severity. Symptoms aggravated by nothing. Symptoms alleviated by nothing. Patient denies vomiting, fevers, chills , CP, SOB. Patient takes aspirin. - History of Current Complaint Chief Complaint: EDAbdPain Stated Complaint: "ABDOMINAL PAIN/NEAUSEA PER PT" Time Seen by Provider: 12/16/18 18:34 Hx Obtained From: Patient Onset/Duration: Gradual Onset, Lasting Days - 2 days, Still Present Timing: Constant Severity Initially: Mild Severity Currently: Mild Pain Intensity: 3 Pain Scale Used: 0-10 Numeric Location: Other - Lower Aggravating Factor(s): Nothing Alleviating Factor(s): Nothing Associated Signs and Symptoms: Positive: Negative - vomiting, fevers, chills, CP , SOB, Constipation, Nausea, Other: - Bloating, decreased appetite Allergies/Adverse Reactions: Allergies Allergy/AdvReac Type Severity Reaction Status Date / Time No Known Allergies Allergy Verified 12/16/18 16:07 Home Medications: Home Medications Flaxseed Oil [[place]-3 Flaxseed Oil] 2,000 mg PO DAILY 12/16/18 [History Confirmed 12/16/18] PMH/Surg Hx/FS Hx/Imm Hx Endocrine/Hematology History: Denies: Hx Diabetes, Hx Thyroid Disease Cardiovascular History: Reports: Hx Rheumatic Fever - HX OF 1966 Denies: Hx Hypertension Respiratory History: Denies: Hx Asthma, Hx Chronic Obstructive Pulmonary Disease (COPD) GI History: Reports: Hx Obstructive Bowel - 29 years ago small bowel obstruction Denies: Hx Ulcer History: Reports: Other Problems/Disorders - HX OF UTI'S IN THE PAST Musculoskeletal History: Reports: Hx Arthritis - FINGERS, Hx Osteoporosis, Other Musculoskeletal History - osteoporosis Sensory History: Reports: Hx Cataracts - BILATERAL, Hx Contacts or Glasses Denies: Hx Hearing Aid Opthamlomology History: Reports: Hx Cataracts - BILATERAL, Hx Contacts or Glasses Neurological History: Reports: Hx Transient Ischemic Attacks (TIA) - Surgical History Surgery Procedure, Year, and Place: Right ankle repair 07/2016. abdominal adhesion 1988.91 left distal radius ORIF , 2012. larisa cataracts , 11/2014, [facility] [place]. tubal ligation 1962, [facility] [place]. appendectomy, 89 Hx Anesthesia Reactions: Yes - OVERNIGHT OBSERVATION/WRIST SURGERY/MAY HAVE HEART RELATED, UNK, NONE SINCE Infectious Disease History: No Infectious Disease History: Denies: Hx Hepatitis, Hx Human Immunodeficiency Virus (HIV), Traveled Outside the [place] in Last 30 Days - Family History Known Family History: Positive: Other - Negative anesthesia reaction - Social History Alcohol Use: None Hx Substance Use: No Substance Use Type: Reports: None Hx Tobacco Use: No Smoking Status (MU): Never Smoked Tobacco Review of Systems Negative: Fever, Chills Negative: Chest Pain Negative: Shortness Of Breath Gastrointestinal: Other - Decreased appetite, constipation, bloating Positive: Abdominal Pain, Nausea. Negative: Vomiting All Other Systems Reviewed And Are Negative: Yes Physical Exam - Summary Physical Exam Summary: GENERAL: Patient is a well-developed and nourished F who is lying comfortable in the stretcher. Patient is not in any acute respiratory distress. HEAD AND FACE: Normocephalic EYES: PERRLA, EOMI x 2. EARS: Hearing grossly intact. MOUTH: Oropharynx within normal limits. NECK: Supple, trachea is midline, no adenopathy, no JVD, no carotid bruit. CHEST: Symmetric, no tenderness at palpation LUNGS: Clear to auscultation bilaterally. No wheezing or crackles. CVS: Regular rate and rhythm, S1 and S2 present, no murmurs or gallops appreciated. ABDOMEN: mildly distended without rebound or guarding EXTREMITIES: Full ROM in all major joints, no edema, no cyanosis or clubbing. NEURO: Alert and oriented x 3. No acute neurological deficits. Speech is normal and follows commands. SKIN: Dry and warm Triage Information Reviewed: Yes Vital Signs On Initial Exam: Initial Vitals Temp Pulse Resp BP Pulse Ox 100.6 F 95 16 153/81 96 12/16/18 16:04 12/16/18 16:04 12/16/18 16:04 12/16/18 16:04 12/16/18 16:04 Vital Signs Reviewed: Yes Diagnostics - Vital Signs Vital Signs Temp Pulse Resp BP Pulse Ox 12/16/18 16:04 100.6 F 95 16 153/81 96 - Laboratory Lab Results: Lab Results 12/16/18 12/16/18 12/16/18 Range/Units 18:16 18:16 18:16 WBC 12.0 H (3.5-10.8) 10^3/uL RBC 4.27 (3.70-4.87) 10^6 /uL Hgb 12.5 (12.0-16.0) g/dL Hct 37 (35-47) % MCV 87 (80-97) fL MCH 29 (27-31) pg MCHC 34 (31-36) g/dL RDW 14 (10-15) % Plt Count 222 (150-450) 10^3/uL MPV 7.2 L (7.4-10.4) fL Neut % (Auto) 85.5 % Lymph % (Auto) 7.0 % [place] % (Auto) 7.1 % Eos % (Auto) 0.0 % Baso % (Auto) 0.4 % Absolute Neuts (auto) 10.3 H (1.5-7.7) 10^3/ul Absolute Lymphs (auto) 0.8 L (1.0-4.8) 10^3/ul Absolute Monos (auto) 0.9 H (0-0.8) 10^3/ul Absolute Eos (auto) 0.0 (0-0.6) 10^3/ul Absolute Basos (auto) 0.1 (0-0.2) 10^3/ul Absolute Nucleated RBC 0.0 10^3/ul Nucleated RBC % 0.0 Sodium 129 L (135-145) mmol/L Potassium 3.9 (3.5-5.0) mmol/L Chloride 100 L (101-111) mmol/L Carbon Dioxide 23 (22-32) mmol/L Anion Gap 6 (2-11) mmol/L BUN 10 (6-24) mg/dL Creatinine 0.47 L (0.51-0.95) mg/dL Est GFR ( Amer) 151.3 (>60) Est GFR (Non-Af Amer) 125.1 (>60) BUN/Creatinine Ratio 21.3 H (8-20) Glucose 114 H (70-100) mg/dL Lactic Acid 0.8 (0.5-2.0) mmol/L Calcium 9.9 (8.6-10.3) mg/dL Total Bilirubin 0.90 (0.2-1.0) mg/dL AST 16 (13-39) U/L ALT 13 (7-52) U/L Alkaline Phosphatase 62 (34-104) U/L Troponin I Pending C-Reactive Protein 65.73 H (<8.01) mg/L Total Protein 7.2 (6.4-8.9) g/dL Albumin 3.8 (3.2-5.2) g/dL Globulin 3.4 (2-4) g/dL Albumin/Globulin Ratio 1.1 (1-3) Amylase 18 L (29-103) U/L Lipase < 10 L (11.0-82.0) U/L Result Diagrams: 12/17/18 05:47 12/17/18 05:47 Lab Statement: Any lab studies that have been ordered have been reviewed, and results considered in the medical decision making process. - CT A/P CT Interpretation Completed By: Radiologist Summary of CT Findings: No acute findings. Dr. Clifford has reviewed this radiology report. - EKG 1839 Cardiac Rate: NL - 71 BPM EKG Rhythm: Sinus Rhythm Summary of EKG Findings: NSR at 71 BPM, PACs, LVH. Re-Evaluation - Re-Evaluation First Eval Re-Evaluation Time: 21:17 Comment: Patient reports no abdominal pain still and her nausea is better. Patient agrees to be [place] [facility] that is uncontrolled on outpatient antibiotics. Second Eval Re-Evaluation Time: 21:33 Comment: Discussed CT results with patient, no SBO. Patient agrees to be admitted for UTI. Abdominal Pain Fem Course/Dx - Course Course Of Treatment: This patient is an 88 year old F presenting to ED with a chief complaint of lower abdominal pain since 2 days ago. EKG at 1839 revealed NSR at 71 BPM, PACs, LVH. In the ED course, patient received morphine, fluids, Zofran, and Cefepime. Blood work and UA obtained. CT A/P revealed no acute findings. Case discussed with hospitalist. I discussed results with patient. The patient agrees with this plan. Patient will be admitted [place] [facility] [place] dx of [place]. - Diagnoses Provider Diagnoses: UTI (urinary tract infection) - Provider Notifications Discussed Care Of Patient With: Dakotah Zavaleta Time Discussed With Above Provider: 21:33 Instructed by Provider To: Admit As Inpatient - Discussed patient case with Dr. Zavaleta, hospitalist, who accepted the patient for admission [place] [facility] Discharge - Sign-Out/Discharge Documenting (check all that apply): Patient Departure - Admit Patient Received Moderate/Deep Sedation with Procedure: No - Discharge Plan Condition: Fair Disposition: ADMITTED TO [facility] - Billing Disposition and Condition Condition: FAIR Disposition: Admitted to [facility] - Attestation Statements Document Initiated by Scribe: Yes Documenting Scribe: Jaya Pal Provider For Whom Scribe is Documenting (Include Credential): Kenny Clifford MD Scribe Attestation: Jaya Ledbetter, scribed for Kenny Clifford MD on 12/17/18 at 1053. Scribe Documentation Reviewed: Yes Provider Attestation: The documentation as recorded by the Jaya whiting accurately reflects the service I personally performed and the decisions made by Kenny vargas MD Status of Scribe Document: Viewed
[2018-12-16 18:51] LABS: Troponin I 0.01 ng/mL (<0.04)
[2018-12-16] MEDS ORDERED: Iohexol 300* (CONTRAST) 10 ML SDV IV ONE (18:58)
[2018-12-16] MEDS ORDERED: Cefepime 2 GM in Dextrose(*) 2 GM/50 ML BAG IV ONE (19:51)
--- NOTE | 2018-12-16 21:39 | HP ---
History of Present Illness - History of Present Illness Reason for Visit: Abdominal pain and fever. History of Present Illness: Ms Torres is an 88-year-old female with a past medical history of small bowel obstruction here with abdominal pain and constipation for few days. Patient suspected it could be due to SBO so decided to come to ER. She was denying any nausea or vomiting. Denies any UTI symptoms at this time. She has diagnosis of UTI on and off and has been treated recently with keflex. She had fever of 100.6 in ER. She did mention some chills. No other chest pain or cough. Her main concern was the constipation for over 2 days. Normally has at least 1-2 BM every day. Has had decreased appetite. PAST MEDICAL HISTORY: Arthritis. Osteoporosis. Hyperlipidemia. PAST SURGICAL HISTORY: History of cataracts. History of an appendectomy at young age. History of a small bowel obstruction in 1988, requiring surgery and then in 1990 , also requiring surgery. History of tubal ligation. FAMILY HISTORY: Reviewed, noncontributory. SOCIAL HISTORY: The patient lives alone. She is independent with her ADLs. Her sons are nirav , Joaquin and Isra, who are her healthcare proxies. No history of tobacco or illicit drug use. She has a DNR/DNI. ALLERGIES: No known drug allergies. HOME MEDICATIONS Cyanocobalamin TAB* [Vitamin B12 TAB*] 1,000 mcg PO QAM 06/30/12 [History Confirmed 12/16/18] Cholecalciferol TAB* [Vitamin D TAB*] 2,000 units PO QAM 07/11/12 [History Confirmed 12/16/18] Atorvastatin* [Lipitor 10 MG*] 20 mg PO BEDTIME 11/22/14 [History Confirmed ] Zoledronic/Mannitol 5 MG/100ML [Reclast 5 MG/100ML] 5 mg IV SEE INSTRUCTIONS [History Confirmed 12/16/18] Ibuprofen TAB* [Advil TAB*] 400 mg PO TID PRN 08/18/16 [History Confirmed ] Aspirin TAB* [Aspirin 325 MG TAB*] 81 mg PO DAILY 05/03/18 [History Confirmed ] Flaxseed Oil [[place]-3 Flaxseed Oil] 2,000 mg PO DAILY 12/16/18 [History Confirmed 12/16/18] Review of Systems - Measurements Intake and Output: Intake and Output Last 24 Hours 12/14/18 12/15/18 12/16/18 12/17/18 06:59 06:59 06:59 06:59 Intake Total 1000 Balance 1000 Weight 120 lb Intake: IV Fluids 1000 - Review of Systems Constitutional Symptoms: Positive: Fever Dermatology: Negative: Rash Eyes: Negative: Change in Vision Pulmonary: Negative: Cough, Sputum Cardiology: Negative: Chest Pain, Shortness of Breath, Palpitations Gastroenterology: Positive: Abdominal Pain Negative: Nausea, Vomiting Neurology: Negative: Change in Vision Objective Vital Signs - 8 hr 12/16/18 16:04 Temperature 100.6 F Pulse Rate 95 Respiratory 16 Rate Blood Pressure 153/81 (mmHg) O2 Sat by Pulse 96 Oximetry Oxygen Devices in Use Now: None Eyes: No Scleral Icterus, PERRLA Ears/Nose/Mouth/Throat: NL Teeth, Lips, Gums, Clear Oropharnyx, Mucous Membranes Moist Neck: NL Appearance and Movements; NL JVP Respiratory: Clear to Auscultation Cardiovascular: RRR, No Edema, - - Systolic murmur noted. Abdominal: - - Soft minimal tenderness to deep palpation. Extremities: No Edema Skin: No Rash or Ulcers Neurological: Alert and Oriented x 3, NL Sensation, NL Muscle Strength and Tone Result Diagrams: 12/16/18 18:16 12/16/18 18:16 Additional Lab and Data: Lab Results 12/16/18 12/16/18 12/16/18 Range/Units 18:16 18:16 18:16 WBC 12.0 H (3.5-10.8) 10^3/uL RBC 4.27 (3.70-4.87) 10^6 /uL Hgb 12.5 (12.0-16.0) g/dL Hct 37 (35-47) % MCV 87 (80-97) fL MCH 29 (27-31) pg MCHC 34 (31-36) g/dL RDW 14 (10-15) % Plt Count 222 (150-450) 10^3/uL MPV 7.2 L (7.4-10.4) fL Neut % (Auto) 85.5 % Lymph % (Auto) 7.0 % [place] % (Auto) 7.1 % Eos % (Auto) 0.0 % Baso % (Auto) 0.4 % Absolute Neuts (auto) 10.3 H (1.5-7.7) 10^3/ul Absolute Lymphs (auto) 0.8 L (1.0-4.8) 10^3/ul Absolute Monos (auto) 0.9 H (0-0.8) 10^3/ul Absolute Eos (auto) 0.0 (0-0.6) 10^3/ul Absolute Basos (auto) 0.1 (0-0.2) 10^3/ul Absolute Nucleated RBC 0.0 10^3/ul Nucleated RBC % 0.0 Sodium 129 L (135-145) mmol/L Potassium 3.9 (3.5-5.0) mmol/L Chloride 100 L (101-111) mmol/L Carbon Dioxide 23 (22-32) mmol/L Anion Gap 6 (2-11) mmol/L BUN 10 (6-24) mg/dL Creatinine 0.47 L (0.51-0.95) mg/dL Est GFR ( Amer) 151.3 (>60) Est GFR (Non-Af Amer) 125.1 (>60) BUN/Creatinine Ratio 21.3 H (8-20) Glucose 114 H (70-100) mg/dL Lactic Acid 0.8 (0.5-2.0) mmol/L Calcium 9.9 (8.6-10.3) mg/dL Total Bilirubin 0.90 (0.2-1.0) mg/dL AST 16 (13-39) U/L ALT 13 (7-52) U/L Alkaline Phosphatase 62 (34-104) U/L Troponin I Pending C-Reactive Protein 65.73 H (<8.01) mg/L Total Protein 7.2 (6.4-8.9) g/dL Albumin 3.8 (3.2-5.2) g/dL Globulin 3.4 (2-4) g/dL Albumin/Globulin Ratio 1.1 (1-3) Amylase 18 L (29-103) U/L Lipase < 10 L (11.0-82.0) U/L Assess/Plan/Problems-Billing Assessment: 88yoF with hx of SBO here with abdominal pain noted to have sepsis from UTI Pseudomonas Aeruginosa/E. Coli started on cefepime based on sensitivities. - Patient Problems (1) Sepsis secondary to UTI Current Visit: Yes Status: Acute Code(s): A41.9 - SEPSIS, UNSPECIFIED ORGANISM; N39.0 - URINARY TRACT INFECTION, SITE NOT SPECIFIED SNOMED Code(s): 841368732 Comment: From Pseudomonas Aeruginosa/E. Coli based on previous cultures. Started on cefepime based on sensitivities. Will consult ID regarding ABx choice for discharge planning. Follow up repeat cultures. (2) Constipation Current Visit: Yes Status: Acute Code(s): K59.00 - CONSTIPATION, UNSPECIFIED SNOMED Code(s): 55827405 Comment: Started on stool softner scheduled and PRN laxatives. (3) Hyperlipidemia Comment: Continue atorvastatin (4) DNR (do not resuscitate) (5) DVT prophylaxis Comment: Heparin SQ
[2018-12-17] MEDS: Bisacodyl EC TAB* 5 MG PO SCH ×3 (00:30→15:52)
[2018-12-17] MEDS: Polyethylene Glycol 3350* 17 GM PACKET PO PRN ×2 (00:44→11:48)
[2018-12-17] MEDS: NS 0.9% 1000 ML** 1,000 ML IV SCH ×2 (00:52→15:56)
[2018-12-17 06:24] LABS: ABS Lymphocytes 1.3 10^3/ul (1.0-4.8); ABS Monocytes 1.3 10^3/ul (0-0.8); ABS Neutrophils 7.8 10^3/ul (1.5-7.7); Hematocrit 34 % (35-47); Hemoglobin 11.7 g/dL (12.0-16.0); Lymphocyte % 12.8 %; Mean Corpuscular HGB Conc 34 g/dL (31-36); Mean Corpuscular Hemoglobin 30 pg (27-31); Mean Corpuscular Volume 87 fL (80-97); Mean Platelet Volume 7.5 fL (7.4-10.4); Platelet Count 196 10^3/uL (150-450); Red Blood Count 3.91 10^6 /uL (3.70-4.87); Red Cell Distribution Width 14 % (10-15); White Blood Count 10.5 10^3/uL (3.5-10.8)
[2018-12-17 06:33] LABS: Calcium 8.9 mg/dL (8.6-10.3); EGFR African American 140.9 (>60); EGFR Non-African American 116.4 (>60); Potassium 3.8 mmol/L (3.5-5.0)
[2018-12-17] MEDS: Aspirin 81 mg CHEW TAB* 81 MG TAB.CHEW PO SCH (09:23)
[2018-12-17] MEDS: Heparin VIAL(*) 5000 UNITS/ML VIAL (FIVE THOUSAND) SUBCUT SCH ×2 (09:24→22:13)
[2018-12-17] MEDS: Cyanocobalamin TAB* 500 MCG PO SCH (09:24)
[2018-12-17] MEDS: Cefepime 2 GM in Dextrose(*) 2 GM/50 ML BAG IV SCH ×2 (09:26→22:14)
[2018-12-17] MEDS: Cholecalciferol TAB* 1000 UNITS PO SCH (09:33)
--- NOTE | 2018-12-17 15:53 | PN ---
Subjective Date of Service: 12/17/18 Interval History: Reports feeling sig better today.No dysuria no abd pain Objective Active Medications: Acetaminophen (Tylenol Tab*) 650 mg PO Q4H PRN PRN Reason: FEVER/PAIN Aspirin (Aspirin 81 Mg Chew Tab*) 81 mg PO DAILY [facility] Last Admin: 12/17/18 09:23 Dose: 81 mg Atorvastatin Calcium (Lipitor*) 20 mg PO BEDTIME [facility] Bisacodyl (Dulcolax Ec Tab*) 5 mg PO DAILY [facility] Last Admin: 12/17/18 00:30 Dose: Not Given Cholecalciferol (Vitamin D Tab*) 2,000 units PO QAM [facility] Last Admin: 12/17/18 09:33 Dose: 2,000 units Cyanocobalamin (Vitamin B12 Tab*) 1,000 mcg PO QAM [facility] Last Admin: 12/17/18 09:24 Dose: 1,000 mcg Heparin Sodium (Porcine) (Heparin Vial(*)) 5,000 units SUBCUT Q12HR [facility] Last Admin: 12/17/18 09:24 Dose: 5,000 units Cefepime HCl (Maxipime 2 Gm In Dextrose Duplex (*)) 2 gm in 50 mls @ 100 mls/ hr IV Q12H [facility] Last Admin: 12/17/18 09:26 Dose: 100 mls/hr Sodium Chloride (Ns 0.9% 1000 Ml) 1,000 mls @ 75 mls/hr IV PER RATE [facility] Last Admin: 12/17/18 00:52 Dose: 75 mls/hr Polyethylene Glycol/Electrolytes (Miralax*) 17 gm PO DAILY PRN PRN Reason: CONSTIPATION Last Admin: 12/17/18 11:48 Dose: 17 gm Vital Signs - 8 hr 12/17/18 12/17/18 12/17/18 08:00 11:15 15:12 Temperature 98.6 F 100 F Pulse Rate 60 68 Respiratory 18 16 17 Rate Blood Pressure 105/42 139/48 (mmHg) O2 Sat by Pulse 93 95 Oximetry Oxygen Devices in Use Now: Nasal Cannula Eyes: No Scleral Icterus Ears/Nose/Mouth/Throat: NL Teeth, Lips, Gums Neck: NL Appearance and Movements; NL JVP Respiratory: Symmetrical Chest Expansion and Respiratory Effort, Clear to Auscultation Cardiovascular: NL Sounds; No Murmurs; No JVD, RRR Abdominal: NL Sounds; No Tenderness; No Distention Lymphatic: No Cervical Adenopathy Skin: No Rash or Ulcers Neurological: Alert and Oriented x 3 Result Diagrams: 12/17/18 05:47 12/17/18 05:47 Additional Lab and Data: Lab Results 12/16/18 12/16/18 12/16/18 Range/Units 18:16 18:16 18:16 WBC 12.0 H (3.5-10.8) 10^3/uL RBC 4.27 (3.70-4.87) 10^6 /uL Hgb 12.5 (12.0-16.0) g/dL Hct 37 (35-47) % MCV 87 (80-97) fL MCH 29 (27-31) pg MCHC 34 (31-36) g/dL RDW 14 (10-15) % Plt Count 222 (150-450) 10^3/uL MPV 7.2 L (7.4-10.4) fL Neut % (Auto) 85.5 % Lymph % (Auto) 7.0 % [place] % (Auto) 7.1 % Eos % (Auto) 0.0 % Baso % (Auto) 0.4 % Absolute Neuts (auto) 10.3 H (1.5-7.7) 10^3/ul Absolute Lymphs (auto) 0.8 L (1.0-4.8) 10^3/ul Absolute Monos (auto) 0.9 H (0-0.8) 10^3/ul Absolute Eos (auto) 0.0 (0-0.6) 10^3/ul Absolute Basos (auto) 0.1 (0-0.2) 10^3/ul Absolute Nucleated RBC 0.0 10^3/ul Nucleated RBC % 0.0 Sodium 129 L (135-145) mmol/L Potassium 3.9 (3.5-5.0) mmol/L Chloride 100 L (101-111) mmol/L Carbon Dioxide 23 (22-32) mmol/L Anion Gap 6 (2-11) mmol/L BUN 10 (6-24) mg/dL Creatinine 0.47 L (0.51-0.95) mg/dL Est GFR ( Amer) 151.3 (>60) Est GFR (Non-Af Amer) 125.1 (>60) BUN/Creatinine Ratio 21.3 H (8-20) Glucose 114 H (70-100) mg/dL Lactic Acid 0.8 (0.5-2.0) mmol/L Calcium 9.9 (8.6-10.3) mg/dL Total Bilirubin 0.90 (0.2-1.0) mg/dL AST 16 (13-39) U/L ALT 13 (7-52) U/L Alkaline Phosphatase 62 (34-104) U/L Troponin I Pending C-Reactive Protein 65.73 H (<8.01) mg/L Total Protein 7.2 (6.4-8.9) g/dL Albumin 3.8 (3.2-5.2) g/dL Globulin 3.4 (2-4) g/dL Albumin/Globulin Ratio 1.1 (1-3) Amylase 18 L (29-103) U/L Lipase < 10 L (11.0-82.0) U/L Microbiology and Other Data: Microbiology 12/16/18 18:33 Urine Culture - Preliminary Urine Escherichia Coli 12/16/18 18:16 Anaerobic Blood Culture - Preliminary Blood Venous Assess/Plan/Problems-Billing Assessment: 88yoF with hx of SBO here with abdominal pain noted to have sepsis from UTI Pseudomonas Aeruginosa/E. Coli started on cefepime based on sensitivities. - Patient Problems (1) Sepsis secondary to UTI Current Visit: Yes Status: Acute Code(s): A41.9 - SEPSIS, UNSPECIFIED ORGANISM; N39.0 - URINARY TRACT INFECTION, SITE NOT SPECIFIED SNOMED Code(s): 601670844 Comment: Blood culture with Gram neg rods.Will await speciazation From Pseudomonas Aeruginosa/E. Coli based on previous cultures. Started on cefepime based on sensitivities. Follow urine cultures Continue Cefepime.Improving Will get Echo start with trans thoracic to r/o endocarditis (2) UTI (urinary tract infection) Current Visit: No Status: Acute Comment: Will await urine culture Likely source of sepsis Continue Cefepime Clinical condition improving (3) Hyperlipidemia Current Visit: No Status: Chronic Code(s): E78.5 - HYPERLIPIDEMIA, UNSPECIFIED SNOMED Code(s): 03328613 Comment: Continue atorvastatin
[2018-12-17] MEDS: Atorvastatin* 20 MG TAB PO SCH (22:14)
[2018-12-18] MEDS: Acetaminophen TAB* 325 MG PO PRN ×3 (01:21→20:11)
[2018-12-18 06:56] LABS: ABS Lymphocytes 1.3 10^3/ul (1.0-4.8); ABS Monocytes 0.8 10^3/ul (0-0.8); ABS Neutrophils 5.8 10^3/ul (1.5-7.7); Eosinophil % 0.3 %; Hematocrit 40 % (35-47); Hemoglobin 13.5 g/dL (12.0-16.0); Lymphocyte % 16.8 %; Mean Corpuscular HGB Conc 34 g/dL (31-36); Mean Corpuscular Hemoglobin 30 pg (27-31); Mean Corpuscular Volume 87 fL (80-97); Mean Platelet Volume 7.7 fL (7.4-10.4); Nucleated Red Blood Cells % 0.1; Platelet Count 208 10^3/uL (150-450); Red Blood Count 4.58 10^6 /uL (3.70-4.87); Red Cell Distribution Width 15 % (10-15)
[2018-12-18 07:11] LABS: Calcium 9.5 mg/dL (8.6-10.3); EGFR African American 140.9 (>60); EGFR Non-African American 116.4 (>60); Potassium 4.1 mmol/L (3.5-5.0)
[2018-12-18] MEDS ORDERED: Piperacillin/Tazobac ADVAN(*) 3.375 GM in NS 0.9% 100 ML* 100 ML IVPB ONE (08:28)
[2018-12-18] MEDS: Heparin VIAL(*) 5000 UNITS/ML VIAL (FIVE THOUSAND) SUBCUT SCH ×2 (08:45→20:12)
[2018-12-18] MEDS: Cyanocobalamin TAB* 500 MCG PO SCH (08:45)
[2018-12-18] MEDS: Cholecalciferol TAB* 1000 UNITS PO SCH (08:45)
[2018-12-18] MEDS: Aspirin 81 mg CHEW TAB* 81 MG TAB.CHEW PO SCH (08:45)
[2018-12-18] MEDS ORDERED: Zosyn per Pharmacy* NOTE FOLLOW UP SCH (09:00)
[2018-12-18] MEDS: Bisacodyl EC TAB* 5 MG PO SCH (09:48)
[2018-12-18] MEDS: ZOSYN 3.375 GM Q8H per EXTENDED INFUSION IVPB SCH ×4 (12:58→20:12)
--- NOTE | 2018-12-18 13:22 | ECHO ---
*[facility]* [place] [address] Fax #: [phone] Transthoracic Echocardiogram Patient: Arti Torres : 1930 Study Date: 12/18/2018 Age: 88 Gender: F HR: 71 bpm Height: 64 in /162.6 cm BSA: 1.59 m^2 Weight: 122.7 lb /55.8 kg BMI: 21.1 kg/m^2 *Body Piercer: * Darcy Watts [facility] *Referring Physician: * Marissa Novoa *Reading Physician: * Russell Guerin MD Indications: Bacteremia. History: Murmur. Abnormal EKG. Conclusions Summary: 1. Left ventricle: Systolic function is normal. The estimated ejection fraction is 55-60%. Wall motion is normal; there are no regional wall motion abnormalities. 2. Mitral valve: There is no evidence of a vegetation. There is no evidence of stenosis. 3. Aortic valve: There is no evidence of a vegetation. There is no evidence of stenosis. There is no significant regurgitation. 4. Tricuspid valve: There is no evidence of a vegetation. There is mild-moderate regurgitation. 5. Pulmonic valve: There is no evidence of a vegetation. 6. Pericardium, extracardiac: There is no significant pericardial effusion. 7. Pulmonary arteries: Systolic pressure is moderately increased. The peak pressure during systole by Doppler is 47.0 mm Hg. Study data: Transthoracic echocardiogram. Procedure: Transthoracic echocardiography was performed. Image quality was good. Complete 2D, spectral Doppler, and color flow Doppler. Location: Bedside. Patient status: Inpatient. Patient room number: 413. Rhythm: Normal sinus rhythm. Findings Left ventricle: The cavity size is mildly reduced. Wall thickness is mildly increased. There is focal basal septal hypertrophy. Systolic function is normal. The estimated ejection fraction is 55-60%. Wall motion is normal; there are no regional wall motion abnormalities. Features are consistent with a pseudonormal left ventricular filling pattern, with concomitant abnormal relaxation and increased filling pressure (grade 2 diastolic dysfunction). Right ventricle: The cavity size is normal. Systolic function is normal. Left atrium: The atrium is mildly dilated. Right atrium: The atrium is normal in size. Mitral valve: The leaflets are mildly thickened. There is no evidence of a vegetation. There is no evidence of stenosis. There is trivial regurgitation. Aortic valve: The annulus is mildly calcified. The valve is trileaflet. The leaflets are mildly thickened. There is no evidence of a vegetation. There is no evidence of stenosis. There is no significant regurgitation. Tricuspid valve: The leaflets are normal thickness. There is no evidence of a vegetation. There is no evidence of stenosis. There is mild-moderate regurgitation. Pulmonic valve: The leaflets are normal thickness. There is no evidence of a vegetation. There is no evidence of stenosis. There is mild regurgitation. Aorta: The aorta is normal. Pericardium: There is no significant pericardial effusion. Pulmonary arteries: The main pulmonary artery is normal-sized. Systolic pressure is moderately increased. Systemic veins: Inferior vena cava: The vessel is normal in size. The respirophasic diameter changes are in the normal range (>= 50%). Measurements Left ventricle Value Ref Aortic valve continued Value Ref JORGE, LAX (L) 3.6 cm 3.8 - 5.2 Peak v, S 1.81 m/sec ----- ESD, LAX (L) 2.1 cm 2.2 - 3.5 VTI, S 38.2 cm ----- FS, LAX 42 % 27 - 45 Mean grad, S 8.0 mm Hg ----- PW, ED, LAX (H) 1.2 cm 0.6 - 0.9 Peak grad, S 13.0 mm Hg ----- EF 74 % 54 - 74 E', lat ang, TDI (L) 7.8 cm/sec >=10.0 Mitral valve Value R ef E/e', lat ang, 14 Peak E 1.11 m/sec ---- - TDI Peak A 1.05 m/sec ----- E', med ang, TDI 7.9 cm/sec >=7.0 Decel time 246 ms - ---- E/e', med ang, 14 PHT 81 ms ---- - TDI Mean grad, D 2.0 mm Hg ----- E', avg, TDI 7.9 cm/sec Peak grad, D 5.0 mm Hg ---- - E/e', avg, TDI 14 <=14 Peak E/A ratio 1.1 - ---- MVA, PHT 2.7 cm^2 ----- LVOT Value Ref Peak mina, S 1.27 m/sec Pulmonic valve Value Ref Peak grad, S 6 mm Hg Peak v, S 0.71 m/sec ----- Mean grad, S 4 mm Hg Peak grad, S 2.0 mm Hg ----- Ventricular septum Value Ref Tricuspid valve Value Ref IVS, ED (H) 1.7 cm 0.6 - 0.9 TR peak v (H) 3.2 m/sec <=2.8 Peak RV-RA grad, S 41 mm Hg ----- Right ventricle Value Ref JORGE, LAX 2.8 cm Aortic root Value Ref JORGE minor ax, A4C 3.0 cm 1.9 - 3.5 Root diam 2.7 cm <3.8 mid Pressure, S 49 mm Hg Ascending aorta Value Ref AAo AP diam, S 2.4 cm ----- Left atrium Value Ref AP dim, ES 3.70 cm 2.70 - Pulmonary artery Value Ref 3.80 Pressure, S 47.0 mm Hg ----- ML dim, A4C 4.4 cm SI dim, A4C 4.9 cm Inferior vena cava Value Ref Vol/bsa, ES, A/L (H) 39 ml/m^2 16 - 34 Diam 1.9 cm ----- Right atrium Value Ref Pulmonary veins Value Ref SI dim, ES 5.0 cm 3.4 - 5.3 Peak v, S 0.55 m/sec ----- ML dim, ES, A4C 4.3 cm 2.6 - 4.4 Peak v, D 0.48 m/sec ----- SI dim, ES, A4C 5.0 cm 3.4 - 5.3 Peak S/D ratio 1.1 ----- SI dim/bsa, ES, 3.1 cm/m^2 1.9 - 3.1 A rev duration 137 ms ----- A4C Estimated RAP 8 mm Hg Aortic valve Value Ref Ang diam, ED 1.8 cm Legend: (L) and (H) idania values outside specified reference range. Prepared and electronically signed by Russell Guerin MD 12/18/2018 13:22
--- NOTE | 2018-12-18 13:54 | PN ---
Subjective Date of Service: 12/18/18 Interval History: Patient has no new complaints. She has little appetite, eating a bit. No N/V. She has not have BM in last 24h. Denies urinary complaints. She has long history of recurrent UTIs, asking why this keeps happening. Family History: Unchanged from Admission Social History: Unchanged from Admission Past Medical History: Unchanged from Admission Objective Active Medications: Acetaminophen (Tylenol Tab*) 650 mg PO Q4H PRN PRN Reason: FEVER/PAIN Last Admin: 12/18/18 11:39 Dose: 650 mg Aspirin (Aspirin 81 Mg Chew Tab*) 81 mg PO DAILY [facility] Last Admin: 12/18/18 08:45 Dose: 81 mg Atorvastatin Calcium (Lipitor*) 20 mg PO BEDTIME [facility] Last Admin: 12/17/18 22:14 Dose: 20 mg Bisacodyl (Dulcolax Ec Tab*) 5 mg PO DAILY [facility] Last Admin: 12/18/18 09:48 Dose: 5 mg Cholecalciferol (Vitamin D Tab*) 2,000 units PO QAM [facility] Last Admin: 12/18/18 08:45 Dose: 2,000 units Cyanocobalamin (Vitamin B12 Tab*) 1,000 mcg PO QAM [facility] Last Admin: 12/18/18 08:45 Dose: 1,000 mcg Heparin Sodium (Porcine) (Heparin Vial(*)) 5,000 units SUBCUT Q12HR [facility] Last Admin: 12/18/18 08:45 Dose: 5,000 units Piperacillin Sod/Tazobactam (Sod 3.375 gm/ Sodium Chloride) 100 mls @ 25 mls/ hr IVPB Q8H [facility] Last Admin: 12/18/18 12:58 Dose: 25 mls/hr Pharmacy Consult (Zosyn Per Pharmacy*) 1 note FOLLOW UP .ZOSYN PER PHARMACY [facility] Polyethylene Glycol/Electrolytes (Miralax*) 17 gm PO DAILY PRN PRN Reason: CONSTIPATION Last Admin: 12/17/18 11:48 Dose: 17 gm Vital Signs - 8 hr 12/18/18 12/18/18 07:32 11:22 Temperature 35.7 C 37.2 C Pulse Rate 52 59 Respiratory 16 16 Rate Blood Pressure 136/60 134/50 (mmHg) O2 Sat by Pulse 99 95 Oximetry Oxygen Devices in Use Now: Nasal Cannula Appearance: sleeping, arouses easily Eyes: No Scleral Icterus Ears/Nose/Mouth/Throat: NL Teeth, Lips, Gums Neck: NL Appearance and Movements; NL JVP Respiratory: Symmetrical Chest Expansion and Respiratory Effort Cardiovascular: NL Sounds; No Murmurs; No JVD Abdominal: NL Sounds; No Tenderness; No Distention Neurological: Alert and Oriented x 3 Lines/Tubes/Other Access: Clean, Dry and Intact Peripheral IV Nutrition: Taking PO's Result Diagrams: 12/18/18 06:33 12/18/18 06:33 Microbiology and Other Data: Microbiology 12/16/18 18:33 Urine Urine Culture - Final Esbl Escherichia Coli 12/16/18 18:16 Blood Venous Anaerobic Blood Culture - Final Esbl Escherichia Coli 12/16/18 18:16 Blood Venous Aerobic Blood Culture - Preliminary 12/16/18 18:16 Blood Venous Anaerobic Blood Culture - Preliminary No Growth Day 1 No Growth Day 1 12/16/18 18:16 Blood Venous Aerobic Blood Culture - Preliminary 12/16/18 18:16 Blood Venous No Growth Day 1 Diagnostic Imaging: echo; no vegetations Assess/Plan/Problems-Billing Assessment: 88yo F with hx of SBO here with abdominal pain noted to have sepsis from UTI due to E. Coli - Patient Problems (1) Sepsis secondary to UTI Current Visit: Yes Status: Acute Priority: High Code(s): A41.9 - SEPSIS, UNSPECIFIED ORGANISM; N39.0 - URINARY TRACT INFECTION, SITE NOT SPECIFIED SNOMED Code(s): 582644320 Comment: - Blood culture and urine growing ESBL E Coli, switched to Zosyn - Echo reviewed, no endocarditis - Will discuss bacteremia, repeat surveillance cultures with Dr. Sandy (2) Constipation Current Visit: Yes Status: Acute Priority: Low Code(s): K59.00 - CONSTIPATION, UNSPECIFIED SNOMED Code(s): 02546170 Comment: -Started on stool softner scheduled and PRN laxatives. Status and Disposition: inpatient
--- NOTE | 2018-12-18 15:33 | CONS ---
CONSULTATION REPORT: DATE OF CONSULT: 12/18/18 PRIMARY CARE PROVIDER: Dr. Yareli Raygoza. PHYSICIAN REQUESTING CONSULTATION: Dr. Dakotah Zavaleta. CONSULTING SERVICE: Infectious Disease. PROVIDER: Gilma Limon NP. ATTENDING PHYSICIAN: Dr. Braulio Sandy.* (DICTATED BY GILMA LIMON NP) REASON FOR CONSULT: Gram-negative bacilli bacteremia. IMPRESSION: 1. Extended spectrum beta-lactamase urinary tract infection. The patient had an abdomen and pelvis CT showing multiple low-attenuation liver lesions, no acute findings. Urinalysis on admission with 2+ protein, 1+ ketones, blood 2+, nitrites positive, leukocyte esterase 3+, wbc's 3+, rbc's 2+, squamous epithelial cells present, bacteria absent. Other than low-grade fever overnight of 100.3, she has been afebrile since admission. Leukocytosis present on admission has resolved. She endorses right CVA tenderness. 2. Extended spectrum beta-lactamase Escherichia coli bacteremia, 1 out of 4 bottles. I suspect secondary to a urinary tract infection. No acute findings on abdomen and pelvis CT as stated above. 3. Constipation. The patient reports passing minimal flatus and reports no bowel movement since admission. RECOMMENDATION: Recommend continuing Zosyn while she is in the hospital. When she is ready to be discharged, she can be transitioned to PO Cipro to complete a 10- day course of antibiotics, day 3/10. HISTORY OF PRESENT ILLNESS: Ms. Henriquez is an 88-year-old female with past medical history significant for arthritis, osteoporosis, hyperlipidemia, and recurrent urinary tract infections since March 2018. The patient states that she was last treated for a urinary tract infection around 12/01/18 according to the EMR. On 11/27/18, she had a Pseudomonas and E. coli UTI. She states that she follows with Urology and they treated her with a 5-day course of antibiotics. She states she was feeling better, but then had recurrence of dysuria with complaints of constipation and abdominal discomfort. She felt that she may have a small bowel obstruction, so she presented to the emergency room for further evaluation. While in the emergency room, she was noted to have a fever of 100.6, no chills, and decreased appetite. She had blood cultures drawn and urinalysis, and was noted to have leukocytosis with a white blood cell count of 12,000, elevated CRP at 65.73. Urinalysis with 2+ protein, 1+ ketones, 2+ blood, positive nitrites, 3+ leukocyte esterase, 3+ wbc's, rbc's 2+, squamous epithelial cells present. She was referred to the hospitalist service for admission. During her hospitalization, she reports feeling better. She states that she had a fever break overnight with some diaphoresis. According to the EMR, her temperature max overnight last night was 100.3. She reports the headaches since admission, but denies any photophobia or phonophobia and states that her headache overall is resolving. She denies current urinary symptoms, but does report mild dysuria prior to her presentation with fatigue, anorexia, abdominal discomfort. She also reports right shoulder discomfort. During her stay, her urine culture returned with ESBL E. coli and her blood cultures with 1 out of 4 bottles with ESBL E. coli. PAST MEDICAL HISTORY: 1. Arthritis. 2. Osteoporosis. 3. Hyperlipidemia. PAST SURGICAL HISTORY: 1. Status post cataract extractions. 2. Status post appendectomy. 3. Status post tubal ligation. 4. Status post abdominal surgery for small bowel obstruction. MEDICATIONS: Home medications include: 1. Reclast 5 mg/100, 5 mg IV yearly. 2. Ibuprofen 400 mg by mouth 3 times daily as needed for pain. 3. Flaxseed oil 2000 mg by mouth daily. 4. Vitamin B12 1000 mcg by mouth daily. 5. Vitamin D 2000 units by mouth daily. 6. Atorvastatin 20 mg by mouth at bedtime. 7. Aspirin 81 mg by mouth daily. Hospital medications: 1. Acetaminophen 650 mg by mouth every 4 hours as needed for fever or pain. 2. Aspirin 81 mg by mouth daily. 3. Atorvastatin 20 mg by mouth daily. 4. Dulcolax 5 mg by mouth daily. 5. Vitamin D 2000 units by mouth daily. 6. Vitamin B12 1000 mcg by mouth daily. 7. Heparin sodium 5000 units subcutaneous every 12 hours. 8. Zosyn 3.375 g. 9. MiraLax 17 g by mouth daily as needed for constipation. ALLERGIES: No known drug allergies. FAMILY HISTORY: Denies family history of recurrent or resistant infections. Father with a history of heart arrhythmia and mother with a history of heart murmur secondary to diphtheria. No family history of diabetes. Sister with a history of bone cancer. SOCIAL HISTORY: Denies alcohol, tobacco, or recreational drug use. REVIEW OF SYSTEMS: I performed a 10-point review of systems. All the pertinent positives and negatives are mentioned in the history of present illness. The remaining review of systems are negative. She reports a trip to [place] in August 2018. PHYSICAL EXAM: Vital Signs: Temperature 96.2, heart rate 52, respiratory rate 16, O2 sat 99% on room air, blood pressure 136/60. General Appearance: Alert, appears to be in no acute distress. Head: Normocephalic, atraumatic. EENT: Pupils are equal and reactive to light. Extraocular movements are intact. Moist mucous membranes are moist. No conjunctival hemorrhage. Neck: No lymphadenopathy. Neurological: Cranial nerves II through XII are grossly intact. She is alert and oriented x4. Cardiovascular: Regular rate and rhythm. S1, S2 present. No murmurs, rubs, or gallops heard. Respiratory: No accessory muscle use. Lungs are clear to auscultation bilateral. Abdomen: Bowel sounds hypoactive. Abdomen is distended, soft. Mild right CVA tenderness. Extremities: No lower extremity edema. DP/PT pulses are 2+ and symmetric. Musculoskeletal: No clubbing or cyanosis noted. The patient exhibits good strength in all extremities. There is no tenderness with palpation of the neck, back, or spine. Psychological: Calm and cooperative. Skin: No rashes or abnormalities seen on the exposed skin. There are no splinter hemorrhages. DIAGNOSTIC STUDIES/LAB DATA: Sodium 133, potassium 4.1, chloride 103, CO2 of 24 , BUN 9, creatinine 0.50, glucose 103. White blood cell count 8.0, hemoglobin 13.5, hematocrit 40, platelet count 208. CRP 65.73. Please see impression and recommendations outlined above, recommendations have been discussed with Dr. Gan. Thank you for asking us to see Ms. Henriquez in consultation. The case has been reviewed with my attending, Dr. Braulio Sandy, who agrees with the plan of care. Reviewed by GILMA LIMON, THANIA-C 12/20/18 1847 [id number]/[facility] #: [id number] SEKOU
[2018-12-18] MEDS: Atorvastatin* 20 MG TAB PO SCH (20:12)
[2018-12-19] MEDS: ZOSYN 3.375 GM Q8H per EXTENDED INFUSION IVPB SCH ×4 (06:21→13:43)
[2018-12-19] MEDS: Heparin VIAL(*) 5000 UNITS/ML VIAL (FIVE THOUSAND) SUBCUT SCH (10:16)
[2018-12-19] MEDS: Polyethylene Glycol 3350* 17 GM PACKET PO PRN (10:16)
[2018-12-19] MEDS: Aspirin 81 mg CHEW TAB* 81 MG TAB.CHEW PO SCH (10:17)
[2018-12-19] MEDS: Cholecalciferol TAB* 1000 UNITS PO SCH (10:17)
[2018-12-19] MEDS: Bisacodyl EC TAB* 5 MG PO SCH (10:17)
[2018-12-19] MEDS: Cyanocobalamin TAB* 500 MCG PO SCH (10:17)
[2018-12-19] MEDS: Acetaminophen TAB* 325 MG PO PRN (10:17)
[2018-12-19 16:54] VITALS: BP 138/47
[2018-12-19] MEDS ORDERED: Amoxicillin/Clavulanate TAB* 875 MG PO SCH (21:00)
--- NOTE | 2018-12-20 16:52 | DS ---
CC: Dr. Yareli Wu; Dr. Burns * DISCHARGE SUMMARY: DATE OF ADMISSION: 12/16/18 DATE OF DISCHARGE: 12/19/18 PRIMARY DIAGNOSIS: Urinary tract infection with extended-spectrum beta- lactamase positive Escherichia coli with bacteremia. SECONDARY DIAGNOSES: 1. Osteoarthritis. 2. Osteoporosis. 3. Hyperlipidemia. 4. Recurrent urinary tract infections. MEDICATIONS ON DISCHARGE: 1. Aspirin 81 mg p.o. daily. 2. Atorvastatin 20 mg p.o. q.p.m. 3. Vitamin D 2000 units p.o. daily. 4. Vitamin B12 at 1000 mcg p.o. daily. 5. Flaxseed oil daily. 6. Ibuprofen 400 mg p.o. t.i.d. p.r.n. pain. 7. Reclast 5 mg infusion once a year. 8. Augmentin 875 mg p.o. b.i.d. 9. Dulcolax pill as needed for constipation. 10. MiraLAX 17 g mixed with water daily as needed for constipation. HOSPITAL COURSE: The patient is an 88-year-old woman who is in quite good health , who presented to the emergency department with abdominal pain and constipation. She reported current UTIs and most recently has been diagnosed and treated with Keflex. She reports seeing Dr. Burns in the past for urology regarding recurrent UTIs as well. Initially, given past sensitivities to E. coli and pseudomonas, she was started on cefepime intravenously to treat UTI. A day and a half after admission, the patient's urine culture grew ESBL E. coli, which was resistant to cephalosporins, but sensitive to Zosyn, resistant to Bactrim, intermediate resistance to nitrofurantoin, sensitive to quinolones. The patient was switched to Zosyn. Initial white count was 12.0, which fell to 8 on the day of discharge. Electrolytes were essentially normal with mild hyponatremia, sodium [address] of the abdomen and pelvis did not show any small bowel obstruction. There was no hydronephrosis or kidney stones or bladder distention. The patient responded well to antibiotics, fluids and was ready for discharge on 12/19/18. She was ambulatory, tolerated food well. DISPOSITION: To home. ACTIVITY: Will be as tolerated. DIET: Should be low-fat. STATUS: Inpatient. CONDITION: Good. FOLLOWUP: She should follow up with Dr. Wu, her primary care, within a week and follow up with Dr. Burns within 2 weeks for recurrent UTIs this time with sepsis. The patient was seen in consultation by Dr. Sandy, who recommended that switching to oral antibiotics for gram-negative infection was safe. TIME SPENT: I spent more than 35 minutes with the patient on the day of discharge, completing necessary paperwork, etc. [id number]/[facility] #: [id number] [place]
== END 2018-12-19 17:30 | disposition home or self-care (01) | DRG 872 ==
LOC: ED 16:00 → MED 22:50
PROVIDERS: ADMIT Internal Medicine; ATTEND Internal Medicine
DX: A41.51 Sepsis due to Escherichia coli [E. coli] (principal); N39.0 Urinary tract infection, site not specified; B96.20 Unspecified Escherichia coli [E. coli] as the cause of diseases classified elsewhere; Z16.19 Resistance to other specified beta lactam antibiotics; K59.00 Constipation, unspecified; M19.90 Unspecified osteoarthritis, unspecified site; M81.0 Age-related osteoporosis without current pathological fracture; E78.5 Hyperlipidemia, unspecified; Z66 Do not resuscitate; Z79.82 Long term (current) use of aspirin; Z79.1 Long term (current) use of non-steroidal anti-inflammatories (NSAID); Z79.899 Other long term (current) drug therapy; Z82.49 Family history of ischemic heart disease and other diseases of the circulatory system; Z80.8 Family history of malignant neoplasm of other organs or systems
CPT/HCPCS: 36415; 74177; 80048; 80053; 81003; 81015; 82150; 83605; 83690; 84484; 85025; 86140; 87040; 87077; 87086; 87186; 87205; 93005; 93306; 99285; A9270-GY; J0692; J1644; J2270; J2405; J2543; Q9967